=== PATIENT | male | born 1935 | race Caucasian/White ===

== ENCOUNTER 2020-06-06 14:05 | Outpatient (REF) | payer MEDICARE, SELFPAY ==
[2020-06-06 15:17] LABS: MANUAL DIFF FLAG NO
[2020-06-06 15:23] LABS: Basophils Percent Auto 0.3 % (0-2); Eosinophils Absolute Auto 0.2 X10*3/uL (0.0-0.4); Eosinophils Percent Auto 2.5 % (0-4); Hematocrit 35.6 % (42-52); Hemoglobin 11.6 g/dl (14.0-18.0); Imm Gran Abs Auto 0.03 X10*3/uL (0.00-0.03); Imm Gran Pct Auto 0.4 % (0.0-0.4); Lymphocytes Absolute Auto 1.9 X10*3/uL (1.2-4.9); Mean Corpuscular HGB Conc 32.6 g/dl (31.0-36.0); Mean Corpuscular Hemoglobin 28.9 pg (27.0-33.0); Mean Corpuscular Volume 88.8 fL (80-98); Mean Platelet Volume 11.5 fL (9.4-12.4); Monocytes Absolute Auto 0.6 X10*3/uL (0.1-1.2); Monocytes Percent Auto 8.1 % (2-11); Neutrophils Absolute Auto 4.9 X10*3/uL (2.0-8.3); Neutrophils Percent Auto 63.7 % (45-73); Platelet Count 161 X10*3/uL (160-400); Red Blood Count 4.01 X10*6/uL (4.60-5.80); Red Cell Distribution Width 12.3 % (11.0-16.0); White Blood Count 7.7 X10*3/uL (4.8-10.8)
[2020-06-06 15:40] LABS: B Type Natriuretic Peptide 96 pg/mL (<100)
[2020-06-06 15:41] LABS: Alanine Aminotransferase 12 U/L (0-40); Alkaline Phosphatase 79 U/L (39-117); Anion Gap 13 (12-20); Aspartate Amino Transferase 12 U/L (5-37); Bilirubin Total 0.4 mg/dL (0.0-1.0); Blood Urea Nitrogen 26 mg/dL (9-16); Calcium 9.5 mg/dL (8.4-10.2); Carbon Dioxide 26 mmol/L (22-29); Chloride 108 mmol/L (96-108); Estimated Glomerular Filt Rate 43; Glucose Random 197 mg/dL (60-115); Iron 52 mcg/dL (45-160); Percent Iron Saturation 19 % (15-50); Potassium 4.9 mmol/L (3.3-5.1); Sodium 142 mmol/L (135-145); Total Iron Binding Capacity 279 mcg/dL (228-428); Total Protein 7.2 g/dL (6.5-8.0); Unsaturated Iron Binding 227 ug/dL
[2020-06-06 15:45] LABS: Estimated Average Glucose 180 mg/dL; Hemoglobin A1c % 7.9 %
[2020-06-06 16:01] LABS: Vitamin B12 260 pg/mL (200-900)
== END 2020-06-06 14:06 | disposition home or self-care (01) ==
LOC: HO.LAB 14:05
PROVIDERS: PCP Internal Medicine; Visit Provider Internal Medicine
DX: E11.22 Type 2 diabetes mellitus with diabetic chronic kidney disease (principal); I12.9 Hypertensive chronic kidney disease with stage 1 through stage 4 chronic kidney disease, or unspecified chronic kidney disease; N18.9 Chronic kidney disease, unspecified; R60.9 Edema, unspecified; I48.91 Unspecified atrial fibrillation; I25.10 Atherosclerotic heart disease of native coronary artery without angina pectoris
CPT/HCPCS: 36415; 80053; 82607; 83036; 83540; 83880; 85025

== ENCOUNTER 2020-08-01 13:45 | Outpatient (REF) | payer MEDICARE, SELFPAY ==
[2020-08-01 14:32] LABS: Estimated Average Glucose 169 mg/dL; Hemoglobin A1c % 7.5 %
[2020-08-01 14:48] LABS: Anion Gap 12 (12-20); Blood Urea Nitrogen 37 mg/dL (9-16); Calcium 9.4 mg/dL (8.4-10.2); Carbon Dioxide 24 mmol/L (22-29); Chloride 107 mmol/L (96-108); Estimated Glomerular Filt Rate 35; Glucose Random 191 mg/dL (60-115); Potassium 4.4 mmol/L (3.3-5.1); Sodium 139 mmol/L (135-145)
[2020-08-02 08:42] LABS: Lyme Abs Screen <0.90 index
== END 2020-08-01 13:46 | disposition home or self-care (01) ==
LOC: HO.LAB 13:45
PROVIDERS: PCP Internal Medicine; Visit Provider Internal Medicine
DX: I12.9 Hypertensive chronic kidney disease with stage 1 through stage 4 chronic kidney disease, or unspecified chronic kidney disease (principal); N18.9 Chronic kidney disease, unspecified; E11.22 Type 2 diabetes mellitus with diabetic chronic kidney disease
CPT/HCPCS: 36415; 80048; 83036; 86617; 86618

== ENCOUNTER 2020-11-28 06:32 | Outpatient (REF) | payer MEDICARE, SELFPAY ==
[2020-11-28 07:15] LABS: Basophils Percent Auto 0.4 % (0-2); MANUAL DIFF FLAG SCAN; PLT CLUMP 1; SCAN SMEAR FLAG 1
[2020-11-28 07:18] LABS: Eosinophils Absolute Auto 0.2 X10*3/uL (0.0-0.4); Eosinophils Percent Auto 3.1 % (0-4); Hematocrit 36.6 % (42-52); Hemoglobin 12.1 g/dl (14.0-18.0); Imm Gran Abs Auto 0.02 X10*3/uL (0.00-0.03); Imm Gran Pct Auto 0.3 % (0.0-0.4); Lymphocytes Absolute Auto 1.7 X10*3/uL (1.2-4.9); Mean Corpuscular HGB Conc 33.1 g/dl (31.0-36.0); Mean Corpuscular Hemoglobin 29.6 pg (27.0-33.0); Mean Corpuscular Volume 89.5 fL (80-98); Mean Platelet Volume 10.9 fL (9.4-12.4); Monocytes Absolute Auto 0.6 X10*3/uL (0.1-1.2); Monocytes Percent Auto 9.6 % (2-11); Neutrophils Absolute Auto 4.1 X10*3/uL (2.0-8.3); Neutrophils Percent Auto 61.6 % (45-73); Red Blood Count 4.09 X10*6/uL (4.60-5.80); Red Cell Distribution Width 12.3 % (11.0-16.0); White Blood Count 6.7 X10*3/uL (4.8-10.8)
[2020-11-28 07:22] LABS: Platelet Count 129 X10*3/uL (160-400)
[2020-11-28 07:27] LABS: Estimated Average Glucose 140 mg/dL; Hemoglobin A1c % 6.5 %
[2020-11-28 07:40] LABS: Alanine Aminotransferase 12 U/L (0-40); Albumin Level 4.2 g/dL (3.5-5.0); Alkaline Phosphatase 77 U/L (39-117); Anion Gap 13 (12-20); Aspartate Amino Transferase 17 U/L (5-37); Bilirubin Total 0.5 mg/dL (0.0-1.0); Blood Urea Nitrogen 32 mg/dL (9-16); Calcium 9.4 mg/dL (8.4-10.2); Carbon Dioxide 25 mmol/L (22-29); Chloride 107 mmol/L (96-108); Cholesterol 145 mg/dL; Estimated Glomerular Filt Rate 39; Glucose Fasting 202 mg/dL (60-99); HDL Cholesterol 37 mg/dL; LDL Cholesterol Calculated 95 mg/dl; Potassium 5.5 mmol/L (3.3-5.1); Sodium 139 mmol/L (135-145); Total Protein 7.3 g/dL (6.5-8.0); Triglycerides 66 mg/dL
[2020-11-28 08:02] LABS: Prostate Specific Antigen Scr 2.08 ng/mL (<0.05-4.0)
[2020-11-28 09:16] LABS: Creatinine Urine 86.05 mg/dL
== END 2020-11-28 06:33 | disposition home or self-care (01) ==
LOC: HO.LAB 06:32
PROVIDERS: PCP Internal Medicine; Visit Provider Internal Medicine
DX: Z12.5 Encounter for screening for malignant neoplasm of prostate (principal); N40.0 Benign prostatic hyperplasia without lower urinary tract symptoms; I12.9 Hypertensive chronic kidney disease with stage 1 through stage 4 chronic kidney disease, or unspecified chronic kidney disease; N18.9 Chronic kidney disease, unspecified; E11.22 Type 2 diabetes mellitus with diabetic chronic kidney disease
CPT/HCPCS: 36415; 80053; 80061; 82043; 83036; 84153; 85025

== ENCOUNTER 2021-07-31 12:16 | Outpatient (REF) | payer MEDICARE, SELFPAY ==
--- NOTE | ~2021-07-31 | US_ITS ---
EXAMINATION: US VENOUS ULTRASOUND WITH DOPPLER LOWER EXTREMITY, RIGHT CLINICAL INFORMATION: Right leg pain. COMPARISON: Radiographs of leg from 07/04/2019 TECHNIQUE: Ultrasound of the deep veins is performed from the hip to the calf with compression sonography and color and pulse Doppler assessment. Spectral analysis with color-flow imaging is performed. FINDINGS: The common femoral vein is compressible and exhibits a normal phasic waveform; this suggests that the iliac veins are widely patent above. Within the proximal thigh, the visualized profunda femoris vein is normal. The examined greater saphenous vein and saphenofemoral junction are normal. Superficial femoral vein is patent in the proximal, mid and distal thigh. Popliteal vein is normal to the level of the trifurcation. On compression kurtz scale and color Doppler images, the visualized calf veins are grossly patent. No evidence of Tucker's cyst. US/US venous duplex LE RT IMPRESSION: No evidence of deep vein thrombosis in the right lower extremity.
== END 2021-07-31 12:17 | disposition home or self-care (01) ==
LOC: HO.US 12:16
PROVIDERS: PCP Internal Medicine; Visit Provider Internal Medicine
DX: M79.604 Pain in right leg (principal)
CPT/HCPCS: 93971

== ENCOUNTER 2021-08-08 13:36 | Outpatient (REF) | payer MEDICARE, SELFPAY ==
--- NOTE | ~2021-08-08 | XR_ITS ---
EXAMINATION: XR CHEST CLINICAL INFORMATION: Cough and wheezing COMPARISON: Chest 03/22/2019 TECHNIQUE: 2 views of the chest were obtained. FINDINGS: The lungs are well-expanded and clear of acute process. Heart size is borderline normal. Pulmonary vascularity is normal. There is moderate spondylosis throughout dorsal spine XR/XR chest 2V IMPRESSION: Unremarkable chest exam. Moderate spondylosis dorsal spine
== END 2021-08-08 13:37 | disposition home or self-care (01) ==
LOC: HO.XRAY 13:36
PROVIDERS: PCP Internal Medicine; Visit Provider Internal Medicine
DX: R05.9 Cough, unspecified (principal); R06.2 Wheezing
CPT/HCPCS: 71046

== ENCOUNTER 2023-02-07 06:05 | Outpatient (REF) | payer MEDICARE, SELFPAY ==
[2023-02-07 12:11] LABS: Estimated Average Glucose 143 mg/dL; Hemoglobin A1c % 6.6 % (<6.0)
[2023-02-07 12:15] LABS: Alanine Aminotransferase 6 U/L (0-40); Albumin Level 3.8 g/dL (3.5-5.0); Alkaline Phosphatase 64 U/L (39-117); Anion Gap 11 (12-20); Aspartate Amino Transferase 13 U/L (5-37); Bilirubin Total 0.4 mg/dL (0.0-1.0); Blood Urea Nitrogen 36 mg/dL (9-16); Calcium 9.1 mg/dL (8.4-10.2); Carbon Dioxide 24 mmol/L (22-29); Chloride 110 mmol/L (96-108); Cholesterol 137 mg/dL (<200); Estimated Glomerular Filt Rate 34; Glucose Fasting 120 mg/dL (60-99); HDL Cholesterol 36 mg/dL (>40); LDL Cholesterol Calculated 88 mg/dL (<100); Potassium 4.8 mmol/L (3.3-5.1); Sodium 140 mmol/L (135-145); Total Protein 7.3 g/dL (6.5-8.0); Triglycerides 69 mg/dL (<150)
[2023-02-07 12:45] LABS: Creatinine Urine 104.44 mg/dL; Microalbum/Creatinine Ratio Ur 81.3 ug/mg cr (<30)
== END 2023-02-07 06:06 | disposition home or self-care (01) ==
LOC: HO.HMGCLDS 06:05
PROVIDERS: PCP Internal Medicine; Visit Provider Internal Medicine
DX: E11.22 Type 2 diabetes mellitus with diabetic chronic kidney disease (principal); I12.9 Hypertensive chronic kidney disease with stage 1 through stage 4 chronic kidney disease, or unspecified chronic kidney disease; N18.9 Chronic kidney disease, unspecified; N40.0 Benign prostatic hyperplasia without lower urinary tract symptoms
CPT/HCPCS: 36415; 80053; 80061; 82043; 82570; 83036

== ENCOUNTER 2023-07-25 15:18 | Outpatient (REF) | payer MEDICARE, SELFPAY ==
[2023-07-25 15:29] LABS: MANUAL DIFF FLAG NO
[2023-07-25 15:49] LABS: Basophils Percent Auto 0.4 % (0-2); Eosinophils Absolute Auto 0.2 X10*3/uL (0.0-0.4); Eosinophils Percent Auto 2.4 % (0-4); Hematocrit 35.7 % (42.0-52.0); Hemoglobin 11.6 g/dl (14.0-18.0); Imm Gran Abs Auto 0.02 X10*3/uL (0.00-0.03); Imm Gran Pct Auto 0.3 % (0.0-0.4); Lymphocytes Absolute Auto 1.9 X10*3/uL (1.2-4.9); Lymphocytes Percent Auto 28.2 % (20-40); Mean Corpuscular HGB Conc 32.5 g/dl (31.0-36.0); Mean Corpuscular Hemoglobin 29.1 pg (27.0-33.0); Mean Corpuscular Volume 89.7 fL (80.0-98.0); Mean Platelet Volume 10.8 fL (9.4-12.4); Monocytes Absolute Auto 0.6 X10*3/uL (0.1-1.2); Monocytes Percent Auto 8.5 % (2-11); Neutrophils Absolute Auto 4.1 x10*3/uL (2.0-8.3); Neutrophils Percent Auto 60.2 % (45-73); Platelet Count 143 X10*3/uL (160-400); Red Blood Count 3.98 X10*6/uL (4.60-5.80); Red Cell Distribution Width 12.3 % (11.0-16.0); White Blood Count 6.7 X10*3/uL (4.8-10.8)
[2023-07-25 16:07] LABS: Estimated Average Glucose 140 mg/dL; Hemoglobin A1c % 6.5 % (<6.0)
[2023-07-25 16:10] LABS: Anion Gap 10 (12-20); Blood Urea Nitrogen 37 mg/dL (9-16); Calcium 9.8 mg/dL (8.4-10.2); Carbon Dioxide 29 mmol/L (22-29); Chloride 106 mmol/L (96-108); Estimated Glomerular Filt Rate 33; Glucose Random 192 mg/dL (60-115); Potassium 4.5 mmol/L (3.3-5.1); Sodium 140 mmol/L (135-145)
== END 2023-07-25 15:19 | disposition home or self-care (01) ==
LOC: HO.LAB 15:18
PROVIDERS: PCP Internal Medicine; Visit Provider Internal Medicine
DX: I10 Essential (primary) hypertension (principal); D64.9 Anemia, unspecified; E11.9 Type 2 diabetes mellitus without complications
CPT/HCPCS: 36415; 80048; 83036; 85025

== ENCOUNTER 2023-12-19 06:11 | Outpatient (REF) | payer MEDICARE, SELFPAY ==
[2023-12-19 07:39] LABS: Basophils Percent Auto 0.3 % (0-2); Eosinophils Absolute Auto 0.1 X10*3/uL (0.0-0.4); Eosinophils Percent Auto 2.1 % (0-4); Hematocrit 35.6 % (42.0-52.0); Hemoglobin 11.5 g/dl (14.0-18.0); Imm Gran Abs Auto 0.03 X10*3/uL (0.00-0.03); Imm Gran Pct Auto 0.5 % (0.0-0.4); Lymphocytes Absolute Auto 1.4 X10*3/uL (1.2-4.9); Lymphocytes Percent Auto 22.8 % (20-40); MANUAL DIFF FLAG NO; Mean Corpuscular HGB Conc 32.3 g/dl (31.0-36.0); Mean Corpuscular Hemoglobin 28.9 pg (27.0-33.0); Mean Corpuscular Volume 89.4 fL (80.0-98.0); Mean Platelet Volume 11.5 fL (9.4-12.4); Monocytes Absolute Auto 0.6 X10*3/uL (0.1-1.2); Monocytes Percent Auto 9.3 % (2-11); Neutrophils Absolute Auto 4.1 x10*3/uL (2.0-8.3); Platelet Count 146 X10*3/uL (160-400); Red Blood Count 3.98 X10*6/uL (4.60-5.80); White Blood Count 6.3 X10*3/uL (4.8-10.8)
[2023-12-19 07:50] LABS: Estimated Average Glucose 126 mg/dL; Hemoglobin A1C 131.2802 umol/L; Total Hemoglobin (HGBA1C) 3118.3404 umol/L
[2023-12-19 08:05] LABS: Creatinine Urine 79.15 mg/dL; Microalbum/Creatinine Ratio Ur 121.2 ug/mg cr (<30)
[2023-12-19 08:14] LABS: Alanine Aminotransferase 11 U/L (0-40); Alkaline Phosphatase 63 U/L (39-117); Anion Gap 13 (12-20); Aspartate Amino Transferase 23 U/L (5-37); Bilirubin Total 0.4 mg/dL (0.0-1.0); Blood Urea Nitrogen 32 mg/dL (9-16); Calcium 9.5 mg/dL (8.4-10.2); Carbon Dioxide 24 mmol/L (22-29); Chloride 108 mmol/L (96-108); Cholesterol 136 mg/dL (<200); Estimated Glomerular Filt Rate 34; Glucose Fasting 100 mg/dL (60-99); HDL Cholesterol 36 mg/dL (>40); LDL Cholesterol Calculated 89 mg/dL (<100); Potassium 4.6 mmol/L (3.3-5.1); Sodium 140 mmol/L (135-145); Total Protein 7.4 g/dL (6.5-8.0); Triglycerides 58 mg/dL (<150)
[2023-12-19 08:33] LABS: Prostate Specific Antigen 2.11 ng/mL (<0.05-4.0)
== END 2023-12-19 06:12 | disposition home or self-care (01) ==
LOC: HO.LAB 06:11
PROVIDERS: PCP Internal Medicine; Visit Provider Internal Medicine
DX: I10 Essential (primary) hypertension (principal); E11.9 Type 2 diabetes mellitus without complications; N40.0 Benign prostatic hyperplasia without lower urinary tract symptoms; Z12.5 Encounter for screening for malignant neoplasm of prostate
CPT/HCPCS: 36415; 80053; 80061; 82043; 82570; 83036; 84153; 85025

== ENCOUNTER 2024-01-13 14:45 | Outpatient (REF) | payer MEDICARE, SELFPAY ==
--- OUTSIDE RECORDS SUMMARY | 2024-01-20 15:01 | XMS_ITS ---
Author Organization [facility] [place] Address [address] [place] [address] Care Team Providers Care Resource Specialist Teacher Name Role Phone Pete Fischer MD Primary Care Provider Antolin Hoffman Unavailable [phone] Allergies No Known Allergies REASON FOR VISIT At Risk Footcare Medications Medication SIG (Take, Route, Frequency, Duration) Notes Start Date End Date Status TOLAZamide Active Lisinopril Active glipiZIDE 5 MG 1 tablet Orally Once a day Active Tamsulosin HCl Activ e Metformin & Diet Manage Prod Active januvia Active Eye Drops Active Doxazosin Mesylate A ctive Social History Tobacco Use: Social History Observation Description Date Details (start date - stop date) Never Smoker NA - NA Tobacco Use/Smoking Question Answer Notes Are you a: nonsmoker Tobacco use other than smoking: Question Answer Notes Are you an other tobacco user? No Problems Problem Type SNOMED Code ICD Code Onset Dates Problem Status W/U Status Risk Notes Problem Polyneuropathy due to type 2 diabetes mellitus (555519283) Type 2 diabetes mellitus with diabetic polyneuropathy (E11.42) Active confirmed Vital Signs Height 5 ft 10.5 in in 12/02/2023 Weight 230 lbs 12/02/2023 BMI 32.53 kg/m2 12/02/2023 Blood pressure systolic 125 mm Hg 12/02/19 24 Blood pressure diastolic 65 mm Hg 024 Procedures Procedure Date Ordered Date Performed Result Body Sit e 45019-BPPSVCM NAIL, 6 OR MORE 12/02/2023 N/A 04629-QLYE SKIN LESIONS, 2 TO 4 12/02/2023 N/A Encounters Encounter Location Date Provider Diagnosis [facility] [address] [address] 12/02/2023 Antoiln Dolanunier Type 2 diabetes mellitus with diabetic polyneuropathy E11.42 and Tinea unguium B35.1 Assessments Encounter Date Diagnosis (ICD Code) Assessment Notes Treatment Notes Treatment Clinical Notes Section Notes 12/02/2023 Type 2 diabetes mellitus with diabetic polyneuropathy (ICD-10 - E11.42) 12/02/2023 Tinea unguium (ICD-10 - B35.1) Plan Of Treatment Pending Test Test Name Order Date 73658-EDYDPPW NAIL, 6 OR MORE 12/02/2023 99198-MTEM SKIN LESIONS, 2 TO 4 12/02/19 24 Next Appt Details Follow Up: prn, Reason: Provider Name:Antolin Hernandez , 03/02/2024 09:00:00 AM, [address] [place] [address], [id number], Procedure Notes * Category Sub-Category Detail Notes Debride Nail 6-10 Nail debridement Performance o f this nail treatment by a nonprofessional would put this patients foot and overall health at risk. Therefore, nail debridement was performed extensively to reduce/remove overall nail length, girth, thickness, subungual debris, and necrotic tissue, by manual and/or electrical means through the use of a nail nipper and/or dremel-type cinnamon grinder, to a more viable healthy nail plate or bed tissue 6-10. Silver nitrate used for any petechial bleeding as necessary. Definitive antifungal treatment options have been reviewed and discussed with the patient. The patient chooses, no pharmaceutical tx - [address]17 Keratoma Treatment Parring or Cutting o f Benign Hyperkeratotic Lesion(s) (-56) 2-4 Lesions - The Benign hyperkeratotic lesions, as described above were pared, and/or cut utilizing a sterile 15 blade, tissue nippers, and/or dremel - 68789 Progress Notes * Alex ARIASDOB: (88 yo M)Acc No.[id number]:12/02/2023 Progress Note Patient:?Alex Arias Provider:?Antolin Hernandez DPM :1935???Age:88 Y???Sex:Male Horace e:12/02/2023 Address:[address] [id number] Pcp:Pete Fischer MD Subjective: * Chief Complaints: * ???At Risk Footcare * HPI: ???At Risk footcare:?Pt States Last PCP Visit:?Date?07/14/2023 * ROS:?General/Constitutional:?Nausea?denies.?Vomiting?denies.?Hunger Thirst?denies.?Loss appetite?denies.?Chills?denies.?Fatigue?denies.?Fever?denies.?Night Sweats?denies.?Unexplained weight loss?denies.?Unexplained weight gain?denies.?HEENTM:?Dentures?denies.?Dizziness?denies.?Glasses/contacts?admits.?Retinopathy?de nies.?Blurred/double vision?denies.?TMJ?denies.?Discharge/drainage?denies.?Implants?denies.?Sore throat?denies.?Dental implants?denies.?Hard of hearing ?denies.?Difficulty chewing/swallowing/speaking?denies.?Nose bleeds?denies.?Sore mouth?denies.?Respiratory:?On Oxygen?denies.?Pneumonia/pleurisy?denies.?Bronchitis?denies.?Emphysema?denies.?C oughing?denies.?Cough blood?denies.?Shortness of breath?denies.?Wheezing?denies.?Cardiovascular:?Pacemaker?denies.?MVP?denies.?WPW?denies.?CHF?denies.?Heart attack?denies.?Septal defect?denies.?Rapid beat?denies.?Chest pain ?denies.?Atrial Fib.?denies.?Murmur/Palpitations?denies.?Gastrointestinal:?Hemorrhoids?denies.?Stomach/Abdominal pain?denies.?Dark blood stool?denies.?Irritable bowel ?denies.?Constipation?denies.?Diarrhea?denies.?Hematology:?Swelling?denies.?Clots?denies.?Varicose Veins?denies.?Bruising?denies.?Bleeding problem?denies.?Genitourinary:?Blood urine?denies.?Frequent/Painfu/urination/bladder control?denies.?Kidney stones?denies.?Infection (UTI)?denies.?Nephropathy?denies.?sex trans dis (STD)?denies.?Prostate?denies.?Musculoskeletal:?Hammertoes?admits.?Bunions?denies.?Back Pain?denies.?Muscle Cramps/ Resting?denies.?Muscle cramps / walking?denies.?Generalized aches and pains?denies.?Weakness?denies.?Integ.:?[place]man?denies.?Scars?denies.?Corns/calluses?admits.?Ingrown nails?admits.?Painful nails?denies.?Open Sores?denies.?Rashes?denies.?Neurologic:?Difficulty sleeping?denies.?Brain disorder?denies.?Numbness?denies.?Balance trouble?denies.?Confusion?denies.?Fainting/blackouts?denies.?Tingling?denies.?Tr emors?denies.? * Medical History:? * Surgical History:?prostate s urgery 06/24/2014 * Hospitalization/Major Diagno stic Procedure:?[facility]- pneumonia xrays of lungs same day 07/2021 * Family History:?Mother: dece ased, diagnosed with Other malignant neoplasm of unspecified site.?Father: , diagnosed with Other specified conditions influencing health status.?Daughter(s): alive, diagnosed with Other specified conditions influencing health status.?Son(s): alive, diagnosed with Other specified conditions influencing health status.? * Social History:?Tobacco Use:?Tobacco Use/Smoking?Are you a:?nonsmoker ?Tobacco use other than smoking?Are you an other tobacco user??No ???Miscellaneous:?Caffeine: yes, frequency:,Coffee Tea 1 cups per day. ?Children: yes, 4. ?Exercise: yes, housework active. ?Marital status: . 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 * Medications:?Takingjanuvia D oxazosin Mesylate Eye Drops glipiZIDE 5 MG Tablet 1 tablet Orally Once a dayLisinopril Metformin & Diet Manage Prod Tamsulosin HCl TOLAZamide Medication List reviewed and reconciled with the patientTaking januvia Taking Doxazosin Mesylate Taking Eye Drops Taking glipiZIDE 5 MG Tablet 1 tablet Orally Once a dayTaking Lisinopril Taking Metformin & Diet Manage Prod Taking Tamsulosin HCl Taking TOLAZamide Medication List reviewed and reconciled with the patient * Allergies:?N.K.D.A.yes[Aller gies Verified] Objective: * Vitals:?Ht: 5 ft 10.5 in, Wt : 230, BMI: 32.53, Shoe size: 10.5, BP: 125/65 mm Hg, BS: 81, Wt-k.33 kg. * ???Past Orders: ???Lab:HEMOGLOBIN A1C (GLYCO HEMOGLOBIN) (Order Date - 08/27/2023) (Collection Date - 07/14/2023) ? Value Reference Range ?HEMOGLOBIN A1C % (HH) 6.5 * Examination: ???Ophthalmology Referral: ?DIABETES EYE EXAM?Neurological: ?SENSORY:? Neurological exam demonstrates, reduced light touch sensation, reduced sharp/dull pin prick discrimination , B/L, 5.07 monofilament test performed at plantar aspects of 5 varied sites per foot shows sensation, reduced , B/L.?Nails: ?NAILS are:?Elongated, overgrown, dystrophic, lytic, greater than 3mm thick, discolored and friable with crumbly malodorous subungual debris , 1-5 B/L.?Dermatologic: ?SKIN FINDINGS:?Skin exam reveals Keratotic lesion(s) located at , SUB MTH (s) , 1 , B/L , Heel(s) , B/L.? Assessment: * Assessment: 1.?Type 2 diabetes mellitus with diabetic polyneuropathy - E11.42 (Primary)?2.?Tinea unguium - B35.1? Plan: * Treatment: * Procedures:?Debride Nail 6-10:?Nail debridement?Performance of this nail treatment by a nonprofessional would put this patients foot and overall health at risk. Therefore, nail debridement was performed extensively to reduce/remove overall nail length, girth, thickness, subungual debris, and necrotic tissue, by manual and/or electrical means through the use of a nail nipper and/or dremel-type cinnamon grinder, to a more viable healthy nail plate or bed tissue 6-10. Silver nitrate used for any petechial bleeding as necessary. Definitive antifungal treatment options have been reviewed and discussed with the patient. The patient chooses, no pharmaceutical tx - 31178.?Keratoma Treatment:?Parring or Cutting of Benign Hyperkeratotic Lesion(s)?(-56) 2-4 Lesions - The Benign hyperkeratotic lesions, as described above were pared, and/or cut utilizing a sterile 15 blade, tissue nippers, and/or dremel - 66978.? * Procedure Codes:?03150 DEBRI DE NAIL, 6 OR MORE, Modifiers: XS 29098 TRIM SKIN LESIONS, 2 TO 4, Modifiers: XS * Follow Up:?prn * Images: * Sign off status: Completed true * Provider:?Antolin Hernandez DPM Date:?2023 Generated for Denice carreno/Jann/eTransmitting on:?01/20/2024 03:01 PM EST History and Physical Notes * HPI (History of Present Illness) Category Sub-Category Detail Notes Category Not es At Risk footcare Pt States Last PCP Visit: Date: 4 Examination Category Sub-Category Detail Notes Category Not es Neurological SENSORY: Neurological exa m demonstrates, reduced light touch sensation, reduced sharp/dull pin prick discrimination , B/L, 5.07 monofilament test performed at plantar aspects of 5 varied sites per foot shows sensation, reduced , B/L Dermatologic SKIN FINDINGS: Skin exam reveal s Keratotic lesion(s) located at , SUB MTH (s) , 1 , B/L , Heel(s) , B/L Ophthalmology Referral DIABETES EYE EXAM Diabeti c Retinopathy Screening:: Yes Findings of Diabetic Eye Exam:: no retin opathy Nails NAILS are: Elongated, overg rown, dystrophic, lytic, greater than 3mm thick, discolored and friable with crumbly malodorous subungual debris , 1-5 B/L
--- OUTSIDE RECORDS SUMMARY | 2024-01-20 15:02 | XMS_ITS ---
[facility] Organization [facility] Address [address] [facility] [place] [address] Care Team Providers Care Watch Train Inspector Name Role Phone Pete Fischer MD Primary Care Provider Antolin Hoffman Unavailable [phone] Jose South Unavailable [phone] Allergies No Known Allergies REASON FOR VISIT Painful nail(s) aggrevated by shoes and causing difficulty standing/walking. Medications Medication SIG (Take, Route, Frequency, Duration) Notes Start Date End Date Status Doxazosin Mesylate A ctive Eye Drops Active glipiZIDE 5 MG 1 tablet Orally Once a day Active januvia Active Extra Depth Diabetic Shoes with 3 Pair Custom heat-molded multi-density innersoles for 1 year Dx: A ctive Diabetic Insoles Act zayra Extra Depth Diabetic Shoes with 3 Pair Custom heat-molded multi-density innersoles for 1 year Dx: 02/24/2020 N ot-Taking Extra Depth Diabetic Shoes with 3 Pair Custom heat-molded multi-density innersoles for 1 year Dx: 08/24/2020 N ot-Taking Extra Depth Orthopedic Shoes (1 Pair) with Customized Heat Molded Multidensity Innersoles (3 Pair) as directed Dx: NIDDM/Polyneuropathy (E11.42), Hammertoe Foot Deformity (M20.41,M20.42), Preulcerative Skin Lesion(s) (L85.1 04/27/2018 Not-Taking Extra Depth Diabetic Shoes with 3 Pair Custom heat-molded multi-density innersoles for 1 year Dx: 06/26/2017 N ot-Taking Metformin & Diet Manage Prod Active Tamsulosin HCl Activ e TOLAZamide Active Lisinopril Active Social History Tobacco Use: Social History Observation Description Date Details (start date - stop date) Never Smoker NA - NA Tobacco Use/Smoking Question Answer Notes Are you a: nonsmoker Alcohol Screen Question Answer Notes Did you have a drink containing alcohol in the p ast year? Yes Points 0 Interpretation Negative Tobacco use other than smoking: Question Answer Notes Are you an other tobacco user? No Vital Signs Height 5 ft 10.5 in in 05/14/2023 Weight 237 lbs 05/14/2023 BMI 33.52 kg/m2 05/14/2023 Blood pressure systolic 120 mm Hg 05/14/19 24 Blood pressure diastolic 80 mm Hg 024 Encounters Encounter Location Date Provider Diagnosis [facility] [address] [address] 05/14/2023 Jose South Tinea unguium B35.1 ; Type 2 diabetes mellitus with diabetic polyneuropathy E11.42 ; Pain in left foot M79.672 ; Pain in right toe(s) M79.674 ; Pain in left toe(s) M79.675 and Xerosis cutis L85.3 Assessments Encounter Date Diagnosis (ICD Code) Assessment Notes Treatment Notes Treatment Clinical Notes Section Notes 05/14/2023 Tinea unguium (ICD-10 - B35.1) 05/14/2023 Type 2 diabetes mellitus with diabetic polyneuropathy (ICD-10 - E11.42) 05/14/2023 Pain in left foot (ICD-10 - M79.672) 05/14/2023 Pain in right toe(s) (ICD-10 - M79.674) 05/14/2023 Pain in left toe(s) (ICD-10 - M79.675) 05/14/2023 Xerosis cutis (ICD-10 - L85.3) Plan Of Treatment Medication Medication Name Sig Start Date Stop Date Notes Extra Depth Diabetic Shoes w ith 3 Pair Custom heat-molded multi-density innersoles for 1 year Dx: Next Appt Details Follow Up: 3 Months, Reason: Provider Name:Antolin Hernandez , 03/02/2024 09:00:00 AM, [address] [place] [address], [phone], Procedure Notes * Category Sub-Category Detail Notes Debride Nail 6-10 Nail debridement Nail debridem ent performed extensively to reduce/remove overall nail length and girth, subungual debris, and necrotic tissue, by manual and electrical means with use of a nail nipper and/or dremel, to more viable healthy nail plate or bed tissue 6-10. Silver nitrate used for any petechial bleeding as necessary. Patient chooses, no pharmaceutical tx (89895) Keratoma Treatment Parring or Cutting o f Benign Hyperkeratotic Lesion(s) 69274 (2-4 Lesions) - The Benign hyperkeratotic lesions, as described above were pared, and/or cut utilizing a sterile #15 blade, tissue nippers, and/or dremel Progress Notes * Alex ARIASDOB: [birth year] (88 yo M)Acc No.[id number]:05/14/2023 Progress Note Patient:?Alex Arias Provider:?Jose South DPM :1935???Age:88 Y???Sex:Male Horace e:05/14/2023 Address:[address] [place], [place] [id number] Pcp:Pete Fischer MD Subjective: * Chief Complaints: * ??? Painful nail(s) aggrevat ed by shoes and causing difficulty standing/walking. * HPI: ???Painful Nails:?Pt States Last PCP Visit:?Date:?01/22/2023 * ROS:?General/Constitutional:?Nausea?denies.?Vomiting?denies.?Hunger Thirst?denies.?Loss appetite?denies.?Chills?denies.?Fatigue?denies.?Fever?denies.?Night Sweats?denies.?Unexplained weight loss?denies.?Unexplained weight gain?denies.?HEENTM:?Dentures?denies.?Dizziness?denies.?Glasses/contacts?admits.?Retinopathy?de nies.?Blurred/double vision?denies.?TMJ?denies.?Discharge/drainage?denies.?Implants?denies.?Sore throat?denies.?Dental implants?denies.?Hard of hearing ?denies.?Difficulty chewing/swallowing/speaking?denies.?Nose bleeds?denies.?Sore mouth?denies.?Respiratory:?On Oxygen?denies.?Pneumonia/pleurisy?denies.?Bronchitis?denies.?Emphysema?denies.?C oughing?denies.?Cough blood?denies.?Shortness of breath?denies.?Wheezing?denies.?Cardiovascular:?Pacemaker?denies.?MVP?denies.?WPW?denies.?CHF?denies.?Heart attack?denies.?Septal defect?denies.?Rapid beat?denies.?Chest pain ?denies.?Atrial Fib.?denies.?Murmur/Palpitations?denies.?Gastrointestinal:?Hemorrhoids?denies.?Stomach/Abdominal pain?denies.?Dark blood stool?denies.?Irritable bowel ?denies.?Constipation?denies.?Diarrhea?denies.?Hematology:?Swelling?denies.?Clots?denies.?Varicose Veins?denies.?Bruising?denies.?Bleeding problem?denies.?Genitourinary:?Blood urine?denies.?Frequent/Painfu/urination/bladder control?denies.?Kidney stones?denies.?Infection (UTI)?denies.?Nephropathy?denies.?sex trans dis (STD)?denies.?Prostate?denies.?Musculoskeletal:?Hammertoes?denies.?Bunions?denies.?Back Pain?denies.?Muscle Cramps/ Resting?denies.?Muscle cramps / walking?denies.?Generalized aches and pains?denies.?Weakness?denies.?Integ.:?Inman?denies.?Scars?denies.?Corns/calluses?denies.?Ingrown nails?denies.?Painful nails?denies.?Open Sores?denies.?Rashes?denies.?Neurologic:?Difficulty sleeping?denies.?Brain disorder?denies.?Numbness?denies.?Balance trouble?denies.?Confusion?denies.?Fainting/blackouts?denies.?Tingling?denies.?Tr emors?denies.? * Medical History:? * Surgical History:?prostate s urgery 06/24/2014 * Hospitalization/Major Diagno stic Procedure:?C- pneumonia xrays of lungs same day 07/2021 [...] than smoking?Are you an other tobacco user??No ???Drugs/Alcohol:?Drugs?Have you used drugs other than those for medical reasons in the past 12 months??No ?Alcohol Screen?Did you have a drink containing alcohol in the past year??Yes ?Points?0 ?Interpretation?Negative ???Miscellaneous:?Caffeine: yes, frequency:,Coffee Tea 1 cups per day. ?Children: yes, 4. ?Exercise: yes, housework active. ?Marital status: . 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 * Medications:?Takingjanuvia E xtra Depth Diabetic Shoes with 3 Pair Custom heat- molded multi-density innersoles for 1 year Dx:Doxazosin Mesylate Eye Drops glipiZIDE 5 MG Tablet 1 tablet Orally Once a dayLisinopril Metformin & Diet Manage Prod Tamsulosin HCl TOLAZamide Diabetic Insoles Taking januvia Taking Extra Depth Diabetic Shoes with 3 Pair Custom heat-molded multi-density innersoles for 1 year Dx:Taking Doxazosin Mesylate Taking Eye Drops Taking glipiZIDE 5 MG Tablet 1 tablet Orally Once a dayTaking Lisinopril Taking Metformin & Diet Manage Prod Taking Tamsulosin HCl Taking TOLAZamide Taking Diabetic Insoles Not-Taking/PRNExtra Depth Diabetic Shoes with 3 Pair Custom heat-molded multi-density innersoles for 1 year Dx:Extra Depth Orthopedic Shoes (1 Pair) with Customized Heat Molded Multidensity Innersoles (3 Pair) as directed Dx: NIDDM/Polyneuropathy (E11.42), Hammertoe Foot Deformity (M20.41,M20.42), Preulcerative Skin Lesion(s) (L85.1Extra Depth Diabetic Shoes with 3 Pair Custom heat-molded multi-density innersoles for 1 year Dx:Extra Depth Diabetic Shoes with 3 Pair Custom heat-molded multi-density innersoles for 1 year Dx:Medication List reviewed and reconciled with the patientNot-Taking/PRN Extra Depth Diabetic Shoes with 3 Pair Custom heat-molded multi-density innersoles for 1 year Dx:Not- Taking/PRN Extra Depth Orthopedic Shoes (1 Pair) with Customized Heat Molded Multidensity Innersoles (3 Pair) as directed Dx: NIDDM/Polyneuropathy (E11.42), Hammertoe Foot Deformity (M20.41,M20.42), Preulcerative Skin Lesion(s) (L85.1Not-Taking/PRN Extra Depth Diabetic Shoes with 3 Pair Custom heat-molded multi-density innersoles for 1 year Dx:Not-Taking/PRN Extra Depth Diabetic Shoes with 3 Pair Custom heat-molded multi-density innersoles for 1 year Dx:Medication List reviewed and reconciled with the patient * Allergies:?N.K.D.A.yes[Kodi paez Verified] Objective: * Vitals:?Ht: 5 ft 10.5 in, Wt :237, BMI:33.52, Shoe size:10.5, BP:120/80 mm Hg, BS:76. * ???Past Orders: ???Lab:HEMOGLOBIN A1C (GLYCO HEMOGLOBIN) (Order Date - 07/30/2021) ? Value Reference Range ?HEMOGLOBIN A1C % (HH) 6.8 * Examination: ???Neurological: ?SENSORY:?Neurological exam demonstrates, reduced light touch sensation, reduced vibration sensation, B/L, at Forefoot, at Midfoot, 5.07 monofilament test performed at plantar aspects of 5 varied sites per foot shows sensation, reduced , B/L.?Vascular: ?DP PULSES:?02/13, B/L .?PT PULSES:?02/13, B/L .?EDEMA:? 02/13, B/L, Ankle(s), Leg(s).?Nails: ?NAILS are:?elongated,overgrown,dystrophic,greater than 3mm thick,discolored and friable with crumbly malodorous subungual debris, with dull to no pain on palpation due to neuropathy, 1-5 B/L.?Dermatologic: ?SKIN FINDINGS:? Skin exam reveals Keratotic lesion(s) located at, Heel, B/L.?Orthopedic: ?MUSCLE STRENGTH:?5/5 all groups in a symmetrical fashion , B/L.?DIGITAL DEFORMITIES:? Digital contracture, PIPJ, 2-5 B/L, incompl- reducable to push-up test, no over, nor underlapping.?FOOTWEAR:? worn, nonsupportive.?Ophthalmology Referral: ?DIABETES EYE EXAM?General Examination: ?GENERAL APPEARANCE:?Reveals a pleasant, alert, well nourished, well developed, well hydrated individual, who demonstrates proper attention to hygene/body habitus, and is in no acute distress.?ORIENTED:?person, place, and time.?FOOT EXAM:?Footwear Evaluation? Assessment: * Assessment: 1.?Tinea unguium - B35.1?2.? Type 2 diabetes mellitus with diabetic polyneuropathy - E11.42 (Primary)?3.?Pain in left foot - M79.672?4.?Pain in right toe(s) - M79.674?5.?Pain in left toe(s) - M79.675?6.?Xerosis cutis - L85.3? Plan: * Treatment: * Procedures:?Debride Nail 6-10:?Nail debridement?Nail debridement performed extensively to reduce/remove overall nail length and girth, subungual debris, and necrotic tissue, by manual and electrical means with use of a nail nipper and/or dremel, to more viable healthy nail plate or bed tissue 6-10. Silver nitrate used for any petechial bleeding as necessary. Patient chooses, no pharmaceutical tx (47300).?Keratoma Treatment:?Parring or Cutting of Benign Hyperkeratotic Lesion(s)?46183 (2-4 Lesions) - The Benign hyperkeratotic lesions, as described above were pared, and/or cut utilizing a sterile #15 blade, tissue nippers, and/or dremel.? * Procedure Codes:?84874 TRIM SKIN LESIONS, 2 TO 4, Modifiers: XS * Preventive Medicine:? ??Counseling:?Discussion:?-13: Office or other outpatient visit for the evaluation and management of an established patient, which required a medically appropriate history and/or examination and LOW level of DECISION MAKING for: 1 STABLE ACUTE UNCOMPLICATED PROBLEM, 2 OR MORE MINOR PROBLEMS, OR 1 STABLE CHRONIC PROBLEM, THAT POSE(S) A LOW RISK FOR MORBIDITY/MORTALITY. When using time for code selection, 20-29 min of total time was spent on the day of the encounter interpreting the data and educating the patient as to the nature of their condition, treatment options available according to their individual PMH, meds, allergies, and overall health/living conditions, as well as any potential risks or complications that may occur from a failure to adhere to, and participate in, the recommended course of therapy. The discussion included a complete verbal, and/or written explanation of the examination results, any x- rays taken, the proposed diagnosis, and outline of the treatment plan. A schedule for future care needs was also explained. The patient verbalized an understanding of the instructions at this time and agreed to be an active participant in their treatment. If the patient should think of any questions or concerns after the visit, I have encouraged the patient to call the office--pt needs to comply with new rx dm shoes and given info for pnos and live for shoes.?Diabetic Footcare:?The patient was counseled in great detail on their muscoloskeletal foot and toe deformities which coincided with the dermatological presentations visualized on exam. We discussed how their deformities put the integrity of their feet at risk for potential pedal complications which makes the accomidative diabetic shoes and cutomizable inserts medically necessary. We discussed the different shoe and insert treatment types and options, as well as the important advantages for adhering to regularly wearing these accomidative devices daily. The patient was made aware of the fact that a failure to abide by these recommedations may be deleterious to their foot health as they are able to prevent many pedal complications such as skin irritation, skin ulceration, infection, and even loss of toe/foot/leg/or life. Time was also spent with the patient dispensing and discussing proper diabetic footcare techniques including daily skin moisturization, daily foot inspection for any interruption in skin integrity including open lesions, or sign of infection such as redness/malodor/drainage/swelling. Also discussed and recommended were procedures regarding daily shoe inspection for the presence of internal foreign bodies as well as any visualized irregular shoe or insert wear. Patient questions re: shoes, inserts, and self foot inspections were answered to their satisfaction as the patient verbally confirmed a full understanding of the above information. A Rx for Extra Depth Diabetic Shoes with 3 pair of custom heat-molded inserts was dispensed, A thorough inspection of the patients Rxed shoegear and inserts was performed and their findings communicated. We reviewed the many important medical advantages for adhering to regularly wearing these toe/foot accommidative devices daily. We reviewed the fact that a failure to implement these recommedations may be deleterious to the patients foot health as there would be an inability to prevent many pedal complications. Such may lead to skin irritation, skin ulceration, infection, and even loss of toe/foot/leg/or their life. Time was also spent reviewing proper diabetic footcare practices including daily skin moisturization, daily foot inspection for any interruption in skin integrity, open lesions, or sign of infection such as redness/malodor/drainage/swelling. Also recommended was purposeful regular shoe inspection for the presence of internal foreign bodies as well as irregular shoe and insert wear. Patient questions re: shoes, inserts, and self foot inspections were answered to their satisfaction as the patient verbally confirmed a full understanding of the above information, Rx: Extra Depth Diabetic Shoes with 3 pair of custom heat-molded inserts.? * Follow Up:?3 Months * Images: * Sign off status: Completed true * Provider:?Jose South DPM Date:? 024 Generated for Denice carreno/Jann/Broitting on:?01/20/2024 03:01 PM EST History and Physical Notes * HPI (History of Present Illness) Category Sub-Category Detail Notes Category Not es Painful Nails Pt States Last PCP Visit: Date:: 01/22/2023 Examination Category Sub-Category Detail Notes Category Not es Neurological SENSORY: Neurological exa m demonstrates, reduced light touch sensation, reduced vibration sensation, B/L, at Forefoot, at Midfoot, 5.07 monofilament test performed at plantar aspects of 5 varied sites per foot shows sensation, reduced , B/L Dermatologic SKIN FINDINGS: Skin exam reveal s Keratotic lesion(s) located at, Heel, B/L Orthopedic FOOTWEAR: worn, nonsupportive DIGITAL DEFORMITIES: Digital contracture , PIPJ, 2-5 B/L, incompl-reducable to push-up test, no over, nor underlapping MUSCLE STRENGTH: 5/5 all groups in a symmetrical fashion , B/L General Examination GENERAL APPEARANCE: Reveals a pleasant, alert, well nourished, well developed, well hydrated individual, who demonstrates proper attention to hygene/body habitus, and is in no acute distress FOOT EXAM: Lower Extremity Neurological Exa m performed:: Yes Visual exam of foot performed:: Yes Date: 05/14/2023 Sensory testing performed:: sensations d iminished Pedal pulse taking performed:: 1+ ORIENTED: person, place, and t [place]an [place] Footwear Evaluation Footwear Evaluation performe d:: Yes Ophthalmology Referral DIABETES EYE EXAM Diabeti c Retinopathy Screening:: Yes 05/11/2021 Vascular DP PULSES(B): 02/13, B/L PT PULSES(B): 02/13, B/L EDEMA(C): 02/13, B/L, Ankle(s), Leg(s) Nails NAILS are: elongated,overgr own,dystrophic,greater than 3mm thick,discolored and friable with crumbly malodorous subungual debris, with dull to no pain on palpation due to neuropathy, 1-5 B/L
--- OUTSIDE RECORDS SUMMARY | 2024-01-20 15:02 | XMS_ITS ---
Author Organization [facility] Address [address] [facility] [place] [address] Care Team Providers Care Call Center Receptionist Name Role Phone Pete Fischer MD Primary Care Provider Antolin Hoffman Unavailable [phone] Jose South Unavailable [phone] Allergies No Known Allergies REASON FOR VISIT Painful nail(s) aggrevated by shoes and causing difficulty standing/walking. Medications Medication SIG (Take, Route, Frequency, Duration) Notes Start Date End Date Status Eye Drops Active Doxazosin Mesylate A ctive Extra Depth Diabetic Shoes with 3 Pair Custom heat-molded multi-density innersoles for 1 year Dx: 02/24/2020 N ot-Taking januvia Active Extra Depth Diabetic Shoes with 3 Pair Custom heat-molded multi-density innersoles for 1 year Dx: 06/26/2017 N ot-Taking TOLAZamide Active Extra Depth Diabetic Shoes with 3 Pair Custom heat-molded multi-density innersoles for 1 year Dx: A ctive Extra Depth Orthopedic Shoes (1 Pair) with Customized Heat Molded Multidensity Innersoles (3 Pair) as directed Dx: NIDDM/Polyneuropathy (E11.42), Hammertoe Foot Deformity (M20.41,M20.42), Preulcerative Skin Lesion(s) (L85.1 04/27/2018 Not-Taking Extra Depth Diabetic Shoes with 3 Pair Custom heat-molded multi-density innersoles for 1 year Dx: 08/24/2020 N ot-Taking Diabetic Insoles Act zayra glipiZIDE 5 MG 1 tablet Orally Once a day Active Tamsulosin HCl Activ e Metformin & Diet Manage Prod Active Lisinopril Active Social History Tobacco Use: [...] Signs Height 5 ft 10.5 in in 08/27/2023 Weight 237 lbs 08/27/2023 BMI 33.52 kg/m2 08/27/2023 Blood pressure systolic 120 mm Hg 08/27/19 24 Blood pressure diastolic 80 mm Hg 024 Encounters Encounter Location Date Provider Diagnosis [facility] [address] [address] 08/27/2023 Jose South Tinea unguium B35.1 ; Type 2 diabetes mellitus with diabetic polyneuropathy E11.42 ; Pain in left foot M79.672 ; Pain in right toe(s) M79.674 ; Pain in left toe(s) M79.675 and Xerosis cutis L85.3 Assessments Encounter Date Diagnosis (ICD Code) Assessment Notes Treatment Notes Treatment Clinical Notes Section Notes 08/27/2023 Tinea unguium (ICD-10 - B35.1) 08/27/2023 Type 2 diabetes mellitus with diabetic polyneuropathy (ICD-10 - E11.42) 08/27/2023 Pain in left foot (ICD-10 - M79.672) 08/27/2023 Pain in right toe(s) (ICD-10 - M79.674) 08/27/2023 Pain in left toe(s) (ICD-10 - M79.675) 08/27/2023 Xerosis cutis (ICD-10 - L85.3) Plan Of Treatment Medication Medication Name Sig Start Date Stop Date Notes Extra Depth Diabetic Shoes w ith 3 Pair Custom heat-molded multi-density innersoles for 1 year Dx: Next Appt Details Follow Up: 3 Months, Reason: Provider Name:Antolin Hernandez , 03/02/2024 09:00:00 AM, [address] [place] [address], [id number], Procedure Notes * Category Sub-Category Detail Notes [...] as necessary. Patient chooses, no pharmaceutical tx (34356) Keratoma Treatment Parring or Cutting o f Benign Hyperkeratotic Lesion(s) 46151 (2-4 Lesions) - The Benign hyperkeratotic lesions, as described above were pared, and/or cut utilizing a sterile #15 blade, tissue nippers, and/or dremel Progress Notes * Alex ARIASDOB: [birth year] (88 yo M)Acc No.[id number]:08/27/2023 Progress Note Patient:?Alex Arias Provider:?Jose South DPM :1935???Age:88 Y???Sex:Male Horace e:08/27/2023 Address:[address] [place], [place] [id number] Pcp:Pete Fischer MD Subjective: * Chief Complaints: * ??? Painful nail(s) aggrevat ed by shoes and causing difficulty standing/walking. * HPI: ???Painful Nails:?Pt States Last PCP Visit:?Date:?07/14/2023 * ROS:?General/Constitutional:?Nausea?denies.?Vomiting?denies.?Hunger Thirst?denies.?Loss appetite?denies.?Chills?denies.?Fatigue?denies.?Fever?denies.?Night Sweats?denies.?Unexplained weight loss?denies.?Unexplained [...] ?Marital status: . 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 * Medications:?TakingExtra Dep th Diabetic Shoes with 3 Pair Custom heat-molded multi-density innersoles for 1 year Dx:januvia Doxazosin Mesylate Eye Drops glipiZIDE 5 MG Tablet 1 tablet Orally Once a dayLisinopril Metformin & Diet Manage Prod Tamsulosin HCl TOLAZamide Diabetic Insoles Taking Extra Depth Diabetic Shoes with 3 Pair Custom heat-molded multi-density innersoles for 1 year Dx:Taking januvia Taking Doxazosin Mesylate Taking Eye Drops [...] innersoles for 1 year Dx:Not-Taking/PRN Extra Depth Orthopedic Shoes (1 Pair) with [...] :237, BMI:33.52, Shoe size:10.5, BP:120/80 mm Hg, BS:120. * ???Past Orders: ???Lab:HEMOGLOBIN A1C (GLYCO HEMOGLOBIN) (Order Date - 08/27/2023) (Collection Date - 07/14/2023) ? Value Reference Range ?HEMOGLOBIN A1C % (HH) 6.5 * Examination: ???Neurological: ?SENSORY:?Neurological exam demonstrates, reduced light touch sensation, reduced vibration sensation, B/L, at Forefoot, at Midfoot, 5.07 monofilament test performed at plantar aspects of 5 varied sites per foot shows sensation, reduced , B/L.?Vascular: ?DP PULSES:?4, B/L .?PT PULSES:?02/13, B/L .?EDEMA:? 4, B/L, Ankle(s), Leg(s).?Nails: ?NAILS are:?elongated,overgrown,dystrophic,greater than 3mm [...] as necessary. Patient chooses, no pharmaceutical tx (55244).?Keratoma Treatment:?Parring or Cutting of Benign Hyperkeratotic Lesion(s)?98051 (2-4 Lesions) - The Benign hyperkeratotic lesions, as described above were pared, and/or cut utilizing a sterile #15 blade, tissue nippers, and/or dremel.? * Procedure Codes:?56391 TRIM SKIN LESIONS, 2 TO 4, Modifiers: [...] South DPM Date:? 024 Generated for Denice carreno/Jann/Nishant on:?01/20/2024 03:01 PM EST History and Physical Notes * HPI (History of Present Illness) Category Sub-Category Detail Notes Category Not es Painful Nails Pt States Last PCP Visit: Date:: 07/14/2023 Examination Category Sub-Category Detail Notes Category Not [...]
--- OUTSIDE RECORDS SUMMARY | 2024-01-20 15:02 | XMS_ITS | Patient Health Record ---
Author Organization [facility] Address [address] [place] [address] Care Team Providers Care Lecturer In Marketing Name Role Phone Pete Fischer MD Primary Care Provider Antolin Hoffman Unavailable [phone] Jose South Unavailable [phone] Allergies No Known Allergies Results Component Value Reference Range Notes HEMOGLOBIN A1C (GLYCOHEMOGLO BIN) Reviewed date:08/27/2023 08:30:14 AM Interpretation: Performing Lab: Notes/Report: HEMOGLOBIN A1C % (HH) 6.5 Reason For Referral No Information Medications Medication SIG (Take, Route, Frequency, Duration) Notes Start Date End Date Status januvia Active Eye Drops Active Doxazosin Mesylate A ctive TOLAZamide Active Lisinopril Active glipiZIDE 5 MG 1 tablet Orally Once a day Active Tamsulosin HCl Activ e Metformin & Diet Manage Prod Active Immunizations Vaccine Route Administration Date Status Comme nts COVID-19 Moderna Vaccine Unknown 01/15/2021 Administered 03/13/2020 04/10/2020 Influenza Unknown 11/27/2016 Refused Influenza Unknown 08/18/2017 Administered Influenza Unknown 01/14/2022 Administered Social History Tobacco Use: Social History Observation [...] Polyneuropathy due to type 2 diabetes mellitus ([id number]) Type 2 diabetes mellitus with diabetic polyneuropathy (E11.42) Active confirmed Vital Signs Blood pressure diastolic 65 mm Hg 12/02/2023 Height 5 ft 10.5 in in 12/02/2023 Blood pressure systolic 125 mm Hg 12/02/2023 Weight 230 lbs 12/02/2023 BMI 32.53 kg/m2 12/02/2023 Procedures Procedure Date Ordered Date Performed Result Body Sit e 81738-XGRXBVK NAIL, 6 OR MORE 12/02/2023 N/A 21299-GZKV SKIN LESIONS, 2 TO 4 12/02/2023 N/A Encounters Encounter Location Date Provider Diagnosis [address] [address] 02/12/2023 Jose South Tinea unguium B35.1 ; Type 2 diabetes mellitus with diabetic polyneuropathy E11.42 ; Pain in left foot M79.672 ; Pain in right toe(s) M79.674 ; Pain in left toe(s) M79.675 and Xerosis cutis L85.[address] [address] 05/14/2023 Jose South Tinea unguium B35.1 ; Type 2 diabetes mellitus with diabetic polyneuropathy E11.42 ; Pain in left foot M79.672 ; Pain in right toe(s) M79.674 ; Pain in left toe(s) M79.675 and Xerosis cutis L85.[address] [address] 08/27/2023 Jose South Tinea unguium B35.1 ; Type 2 diabetes mellitus with diabetic polyneuropathy E11.42 ; Pain in left foot M79.672 ; Pain in right toe(s) M79.674 ; Pain in left toe(s) M79.675 and Xerosis cutis L85.[address] [address] 12/02/2023 Antolin Hernandez Type 2 diabetes mellitus with diabetic polyneuropathy E11.42 and Tinea unguium B35.1 Assessments Encounter Date Diagnosis (ICD Code) Assessment Notes Treatment Notes Treatment Clinical Notes Section Notes 02/12/2023 Tinea unguium (ICD-10 - B35.1) 05/14/2023 Tinea unguium (ICD-10 - B35.1) 08/27/2023 Tinea unguium (ICD-10 - B35.1) 12/02/2023 Type 2 diabetes mellitus with diabetic polyneuropathy (ICD-10 - E11.42) 12/02/2023 Tinea unguium (ICD-10 - B35.1) 08/27/2023 Type 2 diabetes mellitus with diabetic polyneuropathy (ICD-10 - E11.42) 05/14/2023 Type 2 diabetes mellitus with diabetic polyneuropathy (ICD-10 - E11.42) 02/12/2023 Type 2 diabetes mellitus with diabetic polyneuropathy (ICD-10 - E11.42) 02/12/2023 Pain in left foot (ICD-10 - M79.672) 05/14/2023 Pain in left foot (ICD-10 - M79.672) 08/27/2023 Pain in left foot (ICD-10 - M79.672) 08/27/2023 Pain in right toe(s) (ICD-10 - M79.674) 05/14/2023 Pain in right toe(s) (ICD-10 - M79.674) 02/12/2023 Pain in right toe(s) (ICD-10 - M79.674) 02/12/2023 Pain in left toe(s) (ICD-10 - M79.675) 05/14/2023 Pain in left toe(s) (ICD-10 - M79.675) 08/27/2023 Pain in left toe(s) (ICD-10 - M79.675) 05/14/2023 Xerosis cutis (ICD-10 - L85.3) 08/27/2023 Xerosis cutis (ICD-10 - L85.3) 02/12/2023 Xerosis cutis (ICD-10 - L85.3) Plan Of Treatment Pending Test Test Name Order Date X ray : Foot, left 3V 11/01/2016 X ray : Foot, right 3V 11/26/2012 05231-KVDCGHG NAIL, 6 OR MORE 06/22/2012 79491-MIZIWWV NAIL, 6 OR MORE 09/23/2012 70392-LAEPGPM NAIL, 6 OR MORE 12/02/2011 94597-YKJYDNB NAIL, 6 OR MORE 03/26/2012 69615-CHLFHQB NAIL, 6 OR MORE 10/24/2010 88287-XPYJWLC NAIL, 6 OR MORE 02/20/2011 15403-MKTSFBN NAIL, 6 OR MORE 06/03/2011 16220-MYVPWZR NAIL, 6 OR MORE 09/02/2011 59171-XWEMWMM NAIL, 6 OR MORE 01/27/2013 19048-RWGOQYZ NAIL, 6 OR MORE 05/03/2013 56881-EVCLHAA NAIL, 6 OR MORE 10/25/2013 10908-LVCHKBE NAIL, 6 OR MORE 01/10/2014 23817-MVQGCKU NAIL, 6 OR MORE 04/04/2014 50724-LFKKCDM NAIL, 6 OR MORE 09/08/2014 76957-BWOWLBW NAIL, 6 OR MORE 12/08/2014 37078-WWDZUUN NAIL, 6 OR MORE 03/08/2015 55133-FAHEJHZ NAIL, 6 OR MORE 11/26/2012 19244-DTXFCXG NAIL, 6 OR MORE 09/18/2016 98803-MIGYOOG NAIL, 6 OR MORE 11/27/2016 13357-VSGLPKT NAIL, 6 OR MORE 06/26/2017 01491-AMDJRON NAIL, 6 OR MORE 06/12/2015 71725-UZTDOVR NAIL, 6 OR MORE 09/11/2015 34362-NBJXXNO NAIL, 6 OR MORE 12/11/2015 38306-VWAYJZG NAIL, 6 OR MORE 03/06/2016 85842-GUWTHUF NAIL, 6 OR MORE 01/26/2018 52849-UQBNRJC NAIL, 6 OR MORE 10/08/2017 95594-EGGYFEV NAIL, 6 OR MORE 12/02/2023 50605-DQFX SKIN LESIONS, 2 TO 4 12/02/19 24 50368-NXCI SKIN LESIONS, 2 TO 4 01/27/20 37109-TROB SKIN LESIONS, 2 TO 4 04/28/19 19 70583-QQWT SKIN LESIONS, 2 TO 4 08/04/19 19 51719-PRZX SKIN LESIONS, 2 TO 4 11/03/19 19 59375-IQIR SKIN LESIONS, 2 TO 4 04/21/19 20 94168-BGKY SKIN LESIONS, 2 TO 4 06/11/20 20 87252-FUNP SKIN LESIONS, 2 TO 4 11/03/19 20 61646-HTLF SKIN LESIONS, 2 TO 4 02/23/19 21 42414-ITNI SKIN LESIONS, 2 TO 4 05/25/19 21 95028-ZVUS SKIN LESIONS, 2 TO 4 08/25/19 21 13584-BXFB SKIN LESIONS, 2 TO 4 11/28/19 21 31620-RBGC SKIN LESIONS, 2 TO 4 03/14/19 22 17320-ONZL SKIN LESIONS, 2 TO 4 06/18/19 17 79816-VIXH SKIN LESIONS, 2 TO 4 09/19/19 17 58517-VEJU SKIN LESIONS, 2 TO 4 12/11/19 16 78701-KRLQ SKIN LESIONS, 2 TO 4 09/11/19 16 89775-NLEQ SKIN LESIONS, 2 TO 4 06/12/19 16 72184-DDYW SKIN LESIONS, 2 TO 4 10/09/19 18 50810-ZHQP SKIN LESIONS, 2 TO 4 06/27/19 18 57201-YFJI SKIN LESIONS, 2 TO 4 11/28/19 17 82613-PONT SKIN LESIONS, 2 TO 4 03/08/19 16 75122-OKOL SKIN LESIONS, 2 TO 4 12/09/19 15 56033-DDIV SKIN LESIONS, 2 TO 4 09/09/19 15 58081-JKWG SKIN LESIONS, 2 TO 4 04/04/19 15 43874-GGJK SKIN LESIONS, 2 TO 4 01/11/20 14 83785-ZCJJ SKIN LESIONS, 2 TO 4 10/26/19 14 47010-TXJF SKIN LESIONS, 2 TO 4 05/04/19 14 30899-EYUK SKIN LESIONS, 2 TO 4 08/13/19 14 41481-JIJF SKIN LESIONS, 2 TO 4 01/28/20 13 20622-KEGB SKIN LESIONS, 2 TO 4 09/02/19 12 21706-OLZL SKIN LESIONS, 2 TO 4 06/03/19 12 11518-BNXS SKIN LESIONS, 2 TO 4 02/20/19 12 17463-EFRZ SKIN LESIONS, 2 TO 4 10/25/19 11 84403-CTIU SKIN LESIONS, 2 TO 4 03/26/19 13 94976-YEQV SKIN LESIONS, 2 TO 4 12/02/19 12 58233-QZUD SKIN LESIONS, 2 TO 4 09/24/19 13 27474-GMOV SKIN LESIONS, 2 TO 4 10/17/20 13 Next Appt Details Provider Name:Antolin V David , 03/02/2024 09:00:00 AM, [address] [facility], [place], [address], Insurance Providers Payer Name Payer Address Payer Phone Subscriber Number Group Number Insured Name Patient Relationship to Insured Coverage Start Date Coverage End Date [employer] [address] [place] [address] [id number] Alex Arias Self - patient is the insured Medical (General) History Medical History History ICD Code mumps type II diabetes covid-19 Hypertension Surgical History Surgery Date(Month/Year) prostate surgery 06/24/2014 Hospitalization History Reason Date(Month/Year) [facility] [place]- pneumonia xrays of lungs same day
== END 2024-01-13 14:46 | disposition home or self-care (01) ==
LOC: HO.SH 14:45
PROVIDERS: Visit Provider Internal Medicine
DX: Z01.10 Encounter for examination of ears and hearing without abnormal findings (principal)
CPT/HCPCS: 92557; 92567

== ENCOUNTER 2024-10-22 10:56 | Outpatient (AMB) | payer MEDICARE, SELFPAY ==
--- NOTE | 2024-10-22 11:00 | A.OFFPC_ITS ---
Vital Signs 10/22/24 11:03 Height 5 ft 10.5 in Weight 227 lb BMI 32.1 BP 140/52 H Blood Pressure Location Lt brachial Position Sitting Respiration 18 Pulse 60 Pulse Source Pulse Oximeter Temp 97.5 F Pulse Oximetry (%) 96 Oxygen Delivery Method Room Air Intake Visit Reasons: Routine / Dr Fischer - see comments Cloth Trimmer Hand Required: No Accompanied by: Spouse Allergies No Known Allergies Allergy (Verified 10/22/24 11:00) Tobacco use date assessed: 10/22/24 HPI HPI Comments History of Present Illness Details The patient is an 89-year-old male presenting for a routine follow-up for chronic condition management. He manages multiple chronic conditions, including essential hypertension, glaucoma, benign prostatic hyperplasia, type 2 diabetes mellitus, and stage 3 chronic kidney disease. The patient reports a blood pressure reading of 140/50 mmHg, which is on the higher end, especially given his active and functional state. He expresses a belief that blood pressure should be higher, but understands the goal is closer to 120-130 mmHg to reduce the risk of cardiovascular and cerebrovascular events. His diabetes medication regimen includes glipizide 5 mg twice daily and Januvia 50 mg once daily. He expresses awareness of his blood sugar fluctuations, particularly when consuming alcohol, which he reports as an occasional intake of weak beers. He is aware that both lifestyle and medication adherence are critical for managing his diabetes and kidney health. The patient is also managing benign prostatic hyperplasia with tamsulosin 0.4 mg taken nightly, and he uses timolol eye drops for glaucoma management. He denies experiencing any acute symptoms or concerns during this visit but brings up the progressive nature of his hearing impairment, which he has yet to address fully with hearing aids. The patient does not have a history of smoking and drinks alcohol sparingly, mainly noting it affects his sugar levels overnight. He continues with routine visits to the assisted living housekeeper to monitor kidney function every six months and acknowledges the role of long-term metformin use in his current kidney condition. 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; 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 - Does not smoke; drinks alcohol occasio sabino in moderation (weak beer) - Active and functional, continues to en jimbo in independent activities - Interested in automobiles and particip ates in car shows - Reports dietary habits include bananas , peanut butter, and vinegar [facility] Medical History (Updated 10/22/24 @ 11:22 by Sebastien Prado MD) CKD stage 3b, GFR 30-44 ml/min BPH (benign prostatic hyperplasia) Glaucoma Diabetes Hypertension Questionnaire Thrive Questionnaire Date Thrive assessed: 10/22/24 I am a: Patient What is your living situation today?: I have a steady place to live Within the past 12 months, did the food you bought not last and you didn't have the money to get more?: Never true Within the past 12 months, did you worry whether your food would run out before you got money to buy more?: Never true Do you have trouble paying for medicines?: No Do you have trouble getting transportation to medical appointments?: No Do you have trouble paying your heating and electricity bill?: No Do you have trouble taking care of your child, family member or friend?: No Do you have trouble with day-to-day activities such as bathing, preparing meals, shopping, managing finances, etc.?: No Are you currently unemployed and looking for a job?: No Are you interested in more education?: No THRIVE Score: 0 AUDIT C Alcohol Use Questionnaire (AUDIT-C) 1. How often do you have a drink containing alcohol?: 2-4 times a month 2. How many drinks containing alcohol do you have on a typical day when you are drinking?: 3 or 4 3. How often do you have six or more drinks on one occasion?: Never Total Score: 3 Score Reviewed/Action Taken: Yes KEN-7 AMB Questionnaire KEN-7 Date KEN - 7 assessed: 10/22/24 Feeling nervous, anxious, or on edge: 0 = Not at all Not being able to stop or control worryin = Not at all Worrying too much about different things: 0 = Not at all Trouble relaxin = Not at all Being so restless that it is hard to sit still: 0 = Not at all Becoming easily annoyed or irritable: 0 = Not at all Feeling afraid as if something awful might happen: 0 = Not at all Total KEN-7 score (0-4 normal; 5-9 mild; 10-14 moderate; 15-21 severe): 0 Source: Developed by Drs. Javier Cifuentes, Pushpa Cabrera, Cristobal Dunn and colleagues, with an educational emilee from [employer]. KEN-7 Assessment Billing KEN-7 Assessment Tool: KEN-7 Assessment 82532 Review of Systems Const Details: - Cardiovascular: Denies chest pain - Endocrine: Reports issues with fluctuating blood sugar levels - Eyes: Reports diagnosis of glaucoma - : Reports use of tamsulosin for benign prostatic hyperplasia - ENT: Reports hearing impairment, does not currently use hearing aids All systems reviewed & are unremarkable except as reviewed in HPI and above Physical exam (Primary Care) Vital Signs: Last Vital Signs Temp 97.5 F 10/22/24 11:03 Pulse 60 10/22/24 11:03 Resp 18 10/22/24 11:03 BP 140/52 H 10/22/24 11:03 Pulse Ox 96 10/22/24 11:03 Oxygen Delivery Method Room Air 10/22/24 11:03 BMI result Body Mass Index 32.1 Tobacco/Smoking Status: Tobacco use Status Tobacco use date assessed 10/22/24 10/22/24 11:00 Const Other: General: +Alert and oriented, Well nourished, No acute distress. Eye: Pupils are equal, round and reactive to light, Intact accommodation, Extraocular movements are intact, Normal conjunctiva, Vision unchanged. HENT: Normocephalic, Atraumatic, Tympanic membranes are clear, Hearing is impaired, Oral mucosa is moist, No pharyngeal erythema, Ear canals patent. Respiratory: Lungs CTA bilaterally, No wheeze, Respirations are non-labored. Cardiovascular: Regular rate, Regular rhythm, S1 auscultated, S2 auscultated, No murmur, Good pulses equal in all extremities, Normal peripheral perfusion, No edema. Gastrointestinal: Soft, Non-tender, Non-distended, Normal bowel sounds, No organomegaly. Musculoskeletal: Normal range of motion, Normal strength, No tenderness, No swelling, No deformity, Normal gait. Integumentary: Warm, Dry, [place], Intact. Neurologic: Alert, Oriented, Normal sensory, Normal motor function, No focal defects, Cranial Nerves II-XII are grossly intact, Normal deep tendon reflexes. Psychiatric: Cooperative, Appropriate mood & affect, Normal judgment. Coding Level of Care Code New Pt Level 4 (83252) Complex EM visit Add On G2211 Diagnoses Hypertension, unspecified type I10 Hypertension type: unspecified Type 2 diabetes mellitus without complication, without long-term current use of insulin E11.9 Diabetes mellitus type: type 2 Diabetes mellitus french binding folder insulin use: without french binding folder use Diabetes mellitus complication status: without complication Glaucoma, unspecified glaucoma type, unspecified laterality H40.9 Glaucoma type: unspecified Laterality: unspecified laterality Benign prostatic hyperplasia, unspecified whether lower urinary tract symptoms present N40.0 Lower urinary tract symptom presence: unspecified whether lower urinary tract symptoms present CKD stage 3b, GFR 30-44 ml/min N18.32 Additional Codes KEN-7 Assessment Billing - KEN-7 Assessment Tool: KEN-7 Assessment 79856 ([id number]) Assessment & Plan Assessment & Plan (1) Hypertension: Comment: - Monitor blood pressure regularly, aim for a target of <130/80 mmHg. - Encourage lifestyle modifications, reduced salt intake. - Consider medication adjustment if home blood pressure remains high. - Continue lisinopril 10 mg b.i.d. Code(s): I10 - Essential (primary) hypertension Category: Medical Qualifiers: Hypertension type: unspecified Qualified Code(s): I10 - Essential (primary) hypertension (2) Diabetes: Comment: - Continue glipizide and Januvia as prescribed. - Monitor blood sugars regularly, particularly after alcohol consumption. - Perform routine lab tests to assess glycemic control and kidney function. Code(s): E11.9 - Type 2 diabetes mellitus without complications Category: Medical Qualifiers: Diabetes mellitus type: type 2 Diabetes mellitus french binding folder insulin use: without french binding folder use Diabetes mellitus complication status: without complication Qualified Code(s): E11.9 - Type 2 diabetes mellitus without complications (3) Glaucoma: Comment: - Continue timolol eye drops as part of ongoing management. - Schedule regular ophthalmology follow-ups. Code(s): H40.9 - Unspecified glaucoma Category: Medical Qualifiers: Glaucoma type: unspecified Laterality: unspecified laterality Qualified Code(s): H40.9 - Unspecified glaucoma (4) BPH (benign prostatic hyperplasia): Comment: - Continue tamsulosin 0.4 mg nightly. - Monitor symptoms and adjust treatment if necessary. Code(s): N40.0 - Benign prostatic hyperplasia without lower urinary tract symptoms Category: Medical Qualifiers: Lower urinary tract symptom presence: unspecified whether lower urinary tract symptoms present Qualified Code(s): N40.0 - Benign prostatic hyperplasia without lower urinary tract symptoms (5) CKD stage 3b, GFR 30-44 ml/min: Comment: - Continue follow-up with nephrology. - Monitor kidney function tests regularly. Code(s): N18.32 - Chronic kidney disease, stage 3b Category: Medical Plan: Health Maintenance: - Monitor blood pressure at home twice a week - Blood work to check cholesterol, sugars, thyroid, vitamin D levels - Follow up with nephrology every six months for kidney health - Reduce salt intake to assist with hypertension management - Encourage continued physical activity and healthy aging Plan During the visit, I discussed the importance of maintaining good control over the patient's chronic conditions, particularly hypertension and diabetes, as these can impact his kidney function. We reviewed the potential necessity to adjust his blood pressure medication if home measurements remain elevated. For diabetes management and alcohol intake, I emphasized the impact of alcohol on blood sugar levels and why monitoring is essential. Additionally, I addressed the importance of regular eye exams for glaucoma and maintaining compliance with prescribed medications. We also explored steps to take regarding his hearing impairment, including [facility]. I provided an overview of his laboratory evaluation today, including recommendations for cholesterol and thyroid testing, to guide ongoing management. We agreed to follow up in three months to assess his blood pressures and overall health standing, with the possibility of extending to six months based on his condition. Orders: Orders Comprehensive Met. Panel Today E11.9 - Type 2 diabetes mellitus without complications, H40.9 - Unspecified glaucoma, I10 - Essential (primary) hypertension Hemoglobin A1c Today E11.9 - Type 2 diabetes mellitus without complications, H40.9 - Unspecified glaucoma, I10 - Essential (primary) hypertension Syphilis Screen Today E11.9 - Type 2 diabetes mellitus without complications, H40.9 - Unspecified glaucoma, I10 - Essential (primary) hypertension Complete Blood Count Auto Diff Today E11.9 - Type 2 diabetes mellitus without complications, H40.9 - Unspecified glaucoma, I10 - Essential (primary) hypertension TSH reflex Free T4 Today E11.9 - Type 2 diabetes mellitus without complications, H40.9 - Unspecified glaucoma, I10 - Essential (primary) hypertension Vitamin D 25-OH Total Today E11.9 - Type 2 diabetes mellitus without complications, H40.9 - Unspecified glaucoma, I10 - Essential (primary) h ypertension Medications: Discontinued sitagliptin phosphate (Irvinguvlinette) Discontinued Reason: Duplicate 50 mg PO DAILY 90 tabs 3RF Patient Instructions: - Check blood pressure at home twice a week; record results. - Limit salt intake in your diet. - Monitor and record blood sugar levels, especially after drinking alcohol. - Continue taking all prescribed medications. - Follow up with your assisted living housekeeper as scheduled. - [facility] and potential hearing [facility]. - Return in three months for a follow-up, unless otherwise advised. - Continue regular exercise and maintain a balanced diet with current foods you enjoy like bananas and peanut butter.
[2024-10-22 11:03] VITALS: BP 140/52; PULSE 60; RESP 18; TEMP 36.4; O2SAT 96; BMI 32.1
--- OUTSIDE RECORDS SUMMARY | 2024-10-22 12:36 | XMS_ITS | Patient Health Record ---
Author Organization [facility] Address [address] [place] [address] Care Team Providers Care Business Services Tech Name Role Phone Jona Thomson Jr Reason For Referral No Information Plan Of Treatment No Information
--- OUTSIDE RECORDS SUMMARY | 2024-10-22 12:36 | XMS_ITS | Encounter Summary ---
Author Organization [facility] Address [address] [place] [address] Phone Care Team Providers Care Ob/Gyn Doctor Name Role Phone Pete Fischer MD Primary Care Provider [phone] Encounter Details Date Type Department Care Team (Late st Contact Info) Description 01/16/2024 Documentation Only [facility] [address] [place] [address] Aleyda Sage [address] [place] [phone] Social History Tobacco Use Types Packs/Day Years Used Date Smoking Tobacco: Never Assessed Sex and Gender Information Value Date Recorded Sex Assigned at Not on file Legal Sex Male 3:27 PM EDT Gender Identity Not on file Sexual Orientation Not on file documented as of this encounter Plan of Treatment Upcoming Encounters Date Type Department Care Team (Late st Contact Info) Description 01/24/2025 2:00 PM EST Office Visit [facility] [address] [place] [address] Mendez Muniz MD [address] [place] [address] [place] [address] documented as of this encounter Visit Diagnoses Not on filedocumented in this encounter Care Teams Ob/Gyn Doctor Relationship Specialty Start Date End Date Pete Fischer MD [address] [place], [place] PCP - General Internal Medicine 08/04/20 documented as of this encounter
--- OUTSIDE RECORDS SUMMARY | 2024-10-22 12:36 | XMS_ITS | Patient Health Record ---
Author Organization [facility] Gal [facility] Address [address] [facility] [place] [address] Care Team Providers Care Steel Rule Die Maker Name Role Phone Frank Santa Primary Care Provider Antolin Hernandez Unavailable [phone] Allergies No Known Allergies Results Component Value Reference Range Notes HEMOGLOBIN A1C (GLYCOHEMOGLO BIN) Reviewed date:09/03/2024 12:03:16 PM Interpretation: Performing Lab: Notes/Report: HEMOGLOBIN A1C % (HH) 6.5 Reason For Referral No Information Medications Medication SIG (Take, Route, Frequency, Duration) Notes Start Date End Date Status Lisinopril Active Tamsulosin HCl Activ e glipiZIDE 5 MG 1 tablet Orally Once a day Active Doxazosin Mesylate A ctive Eye Drops Active Extra Depth Orthopedic Shoes (1 Pair) with Customized Heat Molded Multidensity Innersoles (3 Pair) as directed Dx: NIDDM/Polyneuropathy (E11.42), Hammertoe Foot Deformity (M20.41,M20.42), Preulcerative Skin Lesion(s) (L85.1 06/01/2024 Active januvia Active TOLAZamide Active Metformin & Diet Manage Prod Not-Taking Immunizations Vaccine Route Administration Date Status Comme nts Influenza Unknown 11/27/2016 Refused Influenza Unknown 08/18/2017 Administered Influenza Unknown 01/14/2022 Administered Influenza Unknown 11/11/2023 Administered COVID-19 Moderna Vaccine Unknown 01/15/2021 Administered 03/13/2020 04/10/2020 Social History Tobacco Use: Social History Observation Description Date Details (start date - stop date) Never Smoker NA - NA Tobacco use other than smoking: Question Answer Notes Are you an other tobacco user? No Tobacco Control (Standard) Question Answer Notes Tobacco use: Nonsmoker Additional Findings: Tobacco non-user Current no nsmoker AUDIT-C (Standard) Question Answer Notes Did you have a drink containing alcohol in the p ast year? No Points 0 Interpretation Negative Problems Problem Type SNOMED Code ICD Code Onset Dates Problem Status W/U Status Risk Notes Problem Acquired hammer toe of right foot (9710419637508577 ) Other hammer toe(s) (acquired), right foot (M20.41) Active confirmed Problem Acquired hammer toe of left foot (2821374514457196 ) Other hammer toe(s) (acquired), left foot (M20.42) Active confirmed Problem Polyneuropathy due to type 2 diabetes mellitus (289533291) Type 2 diabetes mellitus with diabetic polyneuropathy (E11.42) Active confirmed Vital Signs Blood pressure diastolic 65 mm Hg 09/03/2024 Height 5 ft 10.5 in in 09/03/2024 Blood pressure systolic 128 mm Hg 09/03/2024 Weight 230 lbs 09/03/2024 BMI 32.53 kg/m2 09/03/2024 Procedures Procedure Date Ordered Date Performed Result Body Sit e 42406-BCHBDAG NAIL, 6 OR MORE 12/02/2023 N/A 00216-KDHN SKIN LESIONS, 2 TO 4 12/02/2023 N/A 12932-ZUERLFQ NAIL, 6 OR MORE 03/02/2024 N/A 46858-BKJG SKIN LESIONS, 2 TO 4 03/02/2024 N/A 62192-TJOCMTP NAIL, 6 OR MORE 06/01/2024 N/A 42530-YGLF SKIN LESIONS, 2 TO 4 06/01/2024 N/A 51969-YLFEVKR NAIL, 6 OR MORE 09/03/2024 N/A 42223-OMLW SKIN LESIONS, 2 TO 4 09/03/2024 N/A Encounters Encounter Location Date Provider Diagnosis [facility] [address] [address] 12/02/2023 Antolin Hernandez Type 2 diabetes mellitus with diabetic polyneuropathy E11.42 and Tinea unguium B35.1 [facility] [address] [address] 03/02/2024 Antolin Hernandez Type 2 diabetes mellitus with diabetic polyneuropathy E11.42 and Tinea unguium B35.[address] [address] 06/01/2024 Antolin Hernandez Type 2 diabetes mellitus with diabetic polyneuropathy E11.42 ; Tinea unguium B35.1 ; Other hammer toe(s) (acquired), right foot M20.41 and Other hammer toe(s) (acquired), left foot M20.[address] [address] 09/03/2024 Antolin Hernandez Type 2 diabetes mellitus with diabetic polyneuropathy E11.42 and Tinea unguium B35.1 Assessments Encounter Date Diagnosis (ICD Code) Assessment Notes Treatment Notes Treatment Clinical Notes Section Notes 12/02/2023 Type 2 diabetes mellitus with diabetic polyneuropathy (ICD-10 - E11.42) 12/02/2023 Tinea unguium (ICD-10 - B35.1) 03/02/2024 Type 2 diabetes mellitus with diabetic polyneuropathy (ICD-10 - E11.42) 03/02/2024 Tinea unguium (ICD-10 - B35.1) 06/01/2024 Type 2 diabetes mellitus with diabetic polyneuropathy (ICD-10 - E11.42) 06/01/2024 Tinea unguium (ICD-10 - B35.1) 09/03/2024 Type 2 diabetes mellitus with diabetic polyneuropathy (ICD-10 - E11.42) 09/03/2024 Tinea unguium (ICD-10 - B35.1) 06/01/2024 Other hammer toe(s) (acquired), right foot (ICD-10 - M20.41) Patient Educated with: DIABETIC FOOT CARE INSTRUCTIONS. pdf (DIABETIC FOOT CARE INSTRUCTIONS. pdf) 06/01/2024 Other hammer toe(s) (acquired), left foot (ICD-10 - M20.42) Plan Of Treatment Pending Test Test Name Order Date X ray : Foot, left 3V 11/01/2016 X ray : Foot, right 3V 11/26/2012 95153-PXUOJSX NAIL, 6 OR MORE 06/22/2012 57859-ZXSCAUA NAIL, 6 OR MORE 09/23/2012 75352-MOSRQHT NAIL, 6 OR MORE 12/02/2011 25724-KHSQKYA NAIL, 6 OR MORE 03/26/2012 33330-UNYHJVW NAIL, 6 OR MORE 10/24/2010 96535-EAEAPKJ NAIL, 6 OR MORE 02/20/2011 86268-HJSEFGQ NAIL, 6 OR MORE 06/03/2011 06048-GNZKKCK NAIL, 6 OR MORE 09/02/2011 16886-BIVQWXJ NAIL, 6 OR MORE 01/27/2013 00491-EQMVNZF NAIL, 6 OR MORE 05/03/2013 83805-THCZVMF NAIL, 6 OR MORE 10/25/2013 67405-TQIRUJV NAIL, 6 OR MORE 01/10/2014 76488-YVMKWTX NAIL, 6 OR MORE 04/04/2014 19471-KQNOPKA NAIL, 6 OR MORE 09/08/2014 60227-HVOFFUJ NAIL, 6 OR MORE 12/08/2014 75812-ATSHBVW NAIL, 6 OR MORE 03/08/2015 78948-XBNSAUZ NAIL, 6 OR MORE 11/26/2012 59593-PLFJEBT NAIL, 6 OR MORE 09/18/2016 38699-PDPZVFJ NAIL, 6 OR MORE 11/27/2016 55600-RDCXWGF NAIL, 6 OR MORE 06/26/2017 54531-TXWNQLS NAIL, 6 OR MORE 06/12/2015 34800-EWMHHIP NAIL, 6 OR MORE 09/11/2015 87502-HMAXFUZ NAIL, 6 OR MORE 12/11/2015 97637-JLGCUCS NAIL, 6 OR MORE 03/06/2016 86307-RGVHBHF NAIL, 6 OR MORE 01/26/2018 87622-BUAVJUI NAIL, 6 OR MORE 10/08/2017 49615-WKUPDPU NAIL, 6 OR MORE 12/02/2023 26156-OQKHMDL NAIL, 6 OR MORE 03/02/2024 53843-BMCMXZM NAIL, 6 OR MORE 06/01/2024 94695-USUPINT NAIL, 6 OR MORE 09/03/2024 28195-NUTV SKIN LESIONS, 2 TO 4 09/04/19 62776-NXBL SKIN LESIONS, 2 TO 4 06/02/19 07006-GBWG SKIN LESIONS, 2 TO 4 03/02/19 73273-WYLI SKIN LESIONS, 2 TO 4 12/02/19 24 43220-APLI SKIN LESIONS, 2 TO 4 01/27/20 18 34966-IAGN SKIN LESIONS, 2 TO 4 04/28/19 19 17304-KFPV SKIN LESIONS, 2 TO 4 08/04/19 19 64450-XRZC SKIN LESIONS, 2 TO 4 11/03/19 19 76284-AVMA SKIN LESIONS, 2 TO 4 04/21/19 20 68234-JZOR SKIN LESIONS, 2 TO 4 07/22/19 03155-HYWK SKIN LESIONS, 2 TO 4 11/03/19 20 28544-CWIY SKIN LESIONS, 2 TO 4 02/23/19 21 57456-SAXU SKIN LESIONS, 2 TO 4 05/25/19 57417-PTQF SKIN LESIONS, 2 TO 4 08/25/19 21 09235-CCNL SKIN LESIONS, 2 TO 4 11/28/19 21 38877-LTOZ SKIN LESIONS, 2 TO 4 03/14/19 22 10366-TYIK SKIN LESIONS, 2 TO 4 06/18/19 17 40650-DTNO SKIN LESIONS, 2 TO 4 09/19/19 17 53798-ZAQN SKIN LESIONS, 2 TO 4 12/11/19 16 44506-XKGQ SKIN LESIONS, 2 TO 4 09/11/19 16 37765-LRUZ SKIN LESIONS, 2 TO 4 06/12/19 16 09488-UZZM SKIN LESIONS, 2 TO 4 10/09/19 18 97065-AQFV SKIN LESIONS, 2 TO 4 06/27/19 18 96112-FMAJ SKIN LESIONS, 2 TO 4 11/28/19 17 59216-NPFW SKIN LESIONS, 2 TO 4 03/08/19 16 00853-SDDH SKIN LESIONS, 2 TO 4 12/09/19 15 64146-FYLD SKIN LESIONS, 2 TO 4 09/09/19 15 43019-MJFI SKIN LESIONS, 2 TO 4 04/04/19 15 15685-SYZB SKIN LESIONS, 2 TO 4 01/11/20 14 66450-LBUR SKIN LESIONS, 2 TO 4 10/26/19 14 10557-RVFY SKIN LESIONS, 2 TO 4 05/04/19 14 37205-IVFL SKIN LESIONS, 2 TO 4 08/13/19 14 15806-LUPG SKIN LESIONS, 2 TO 4 01/28/20 13 75914-GZBB SKIN LESIONS, 2 TO 4 09/02/19 12 81270-FSIF SKIN LESIONS, 2 TO 4 06/03/19 12 29566-DAVN SKIN LESIONS, 2 TO 4 02/20/19 12 27626-LDAB SKIN LESIONS, 2 TO 4 10/25/19 11 24474-USSM SKIN LESIONS, 2 TO 4 03/26/19 13 84375-SBBC SKIN LESIONS, 2 TO 4 12/02/19 12 51691-XHLI SKIN LESIONS, 2 TO 4 09/24/19 13 84928-YGEF SKIN LESIONS, 2 TO 4 11/27/19 13 Next Appt Details Provider Name:Antolin Ac Hernandez , 12/21/2024 10:30:00 AM, [address] [place], [address], Insurance Providers Payer Name Payer Address Payer Phone Subscriber Number Group Number Insured Name Patient Relationship to Insured Coverage Start Date Coverage End Date [employer] [place] Medicare Advantage [facility] [address] [place] [address] [phone] [id number] Alex Arias Self - patient is the insured Medical (General) History Medical History History ICD Code mumps type II diabetes covid-19 Hypertension Surgical History Surgery Date(Month/Year) prostate surgery 06/24/2014 Hospitalization History Reason Date(Month/Year) C- pneumonia xrays of lungs same day
--- OUTSIDE RECORDS SUMMARY | 2024-10-22 12:36 | XMS_ITS | Encounter Summary ---
Author Organization [facility] Address [address] [place] [address] Phone Care Team Providers Care Aircraft Refueler Name Role Phone Pete Fischer MD Primary Care Provider [phone] Encounter Details Date Type Department Care Team (Late st Contact Info) Description 01/23/2024 Documentation Only [facility] [address] [place] [address] Aleyda Sage [address] [place] [phone] Social History Tobacco Use Types Packs/Day Years [...] Visit [facility] [address] [place] [address] Mendez Muniz MD [address] [place] [address] [place] [address] documented as of this encounter Visit Diagnoses Not on filedocumented in this encounter Care Teams Aircraft Refueler Relationship Specialty Start Date End Date Pete Fischer MD [address] [place], [place] PCP - General Internal Medicine 08/04/20 documented as of this encounter
--- OUTSIDE RECORDS SUMMARY | 2024-10-22 12:36 | XMS_ITS | Encounter Summary ---
Author Organization [facility] Address [address] [place] [address] Phone Care Team Providers Care Drawer In Name Role Phone Pete Fischer MD Primary Care Provider [phone] Encounter Details Date Type Department Care Team (Late st Contact Info) Description 07/26/2024 Documentation Only [facility] [address] [place] [address] Aleyda Sage [address] [place] [phone] Social History Tobacco Use Types Packs/Day Years [...] Visit [facility] [address] [place] [address] Mendez Muniz MD [address] [place] [address] [place] [address] documented as of this encounter Visit Diagnoses Not on filedocumented in this encounter Care Teams Drawer In Relationship Specialty Start Date End Date Pete Fischer MD [address] [place], [place] PCP - General Internal Medicine 08/04/20 documented as of this encounter
--- OUTSIDE RECORDS SUMMARY | 2024-10-22 12:36 | XMS_ITS | Clinical Summary ---
Author Organization [facility] Address [address] [place] [address] Phone Care Team Providers Care Field Checker Name Role Phone Pete Fischer MD Primary Care Provider [phone] Allergies No known active allergies Medications doxycycline (VIBRAMYCIN) 100 MG capsule 08/03/2020 Active glipiZIDE (GLUCOTROL XL) 5 MG 24 hr tablet 06/08/2020 Act zayra lisinopril 10 MG tablet 06/08/2020 Active Rhopressa 0.02 % solution 07/25/2020 Active SSD 1 % cream 06/06/2020 Activ e Januvia 50 MG tablet 06/20/2020 Active tamsulosin (FLOMAX) 0.4 MG 24 hr capsule 07/18/2020 Active Glucose Blood (FREESTYLE TEST ) 06/26/2020 Active Active Problems Problem Noted Date Diagnosed Date Stage 3b chronic kidney disease 01/23/2024 Serum creatinine above reference range 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 Hypertension Benign prostatic hyperplasia Encounters Date Type Department Care Team Description 07/26/2024 1:30 PM EDT Office Visit [facility] [address] [place] [address] Rafa Betts MD Stage 3b chronic kidney disease (HCC) (Primary Dx); Proteinuria, not otherwise specified 07/26/2024 Documentation Only [facility] [address] [place] [address] Aleyda Sage from Last 3 Months Immunizations Immunization Administration Dates Next Due Influenza (IM) Preservative Free 01/14/2022,07/0 10/2017 Moderna SARS-COV-2 01/15/2021 Social History Tobacco Use Types Packs/Day Years Used Date Smoking Tobacco: Never Assessed Sex and Gender Information Value Date Recorded Sex Assigned at Not on file Legal Sex Male 3:27 PM EDT Gender Identity Not on file Sexual Orientation Not on file Last Filed Vital Signs Vital Sign Reading Time Taken Comments Blood Pressure 138/50 07/26/2024 1:48 PM EDT Pulse 62 01/26/2024 2:45 PM EST Temperature - - Respiratory Rate - - Oxygen Saturation - - Inhaled Oxygen Concentration - - Weight - - Height - - Body Mass Index - - Plan of Treatment Upcoming Encounters Date Type Department Care Team (Late st Contact Info) Description 01/24/2025 2:00 PM EST Office Visit [facility], [address] [place] [phone] Mendez Muniz MD [address] [place] [address] [place] [phone] Health Maintenance Due Date Last Done Comments Pneumococcal Vaccine: 50+ Years (1 of 2 - PCV) 1954 Diabetes: Hemoglobin A1C 01/28/2023 08/08/2020 Diabetes: Ophthalmology Exam 01/28/2023 Diabetes: Pedal Pulse Checked 01/28/2023 Diabetes: Sensory Foot Exam 01/28/2023 Diabetes: Visual Foot Exam 01/28/2023 Influenza Vaccine (#1) 2024 2, 08/18/2017 Hepatitis B Vaccine Aged Out No longe r eligible based on patient's age to complete this topic Procedures Procedure Name Priority Date/Time Associated Diagnosis Comments HEMOGLOBIN A1C Routine 08/08/2020 2:26 PM EDT Stage 3b chronic kidney disease (HCC) from Last 3 Months or Most Recently Relevant to Health Maintenance Results * (ABNORMAL) Hemoglobin A1c (08/08/2020 2:26 PM EDT) Hemoglobin A1C 7.2(H) (4.0-5.6) % [facility] Comment: MONITORING: In known diabetic patients, hemoglobin A1c targets should be discussed with health care provider. DIAGNOSTIC USE: The [place] Diabetes Association (ADA) and the World Health Organization (WHO) recommend the use of HbA1c to diagnose diabetes using a threshold of 6.5%. Patients who have an HbA1c between 5.7% and 6.4% are considered at increased risk for developing diabetes in the future. CAUTION: Falsely low HbA1c results may be observed in patients with hemolytic anemia, homozygous forms of abnormal hemoglobin (e.g. SS, CC, SC), , recent blood loss or hemoglobin F greater than 7%. Fructosamine may be used as an alternate test in these cases. REFERENCE: ADA: Standards of Medical Care in Diabetes 2020, The Journal of Clinical and Applied Research and Education Volume 43, Supplement 1 Testing performed or reported by [facility], a Service of [facility], [address] [place] [address] Domi Bey MD, Gym Attendant Blood specimen (specimen) Venous blood / Unknown 08/08/2020 2:26 PM EDT 08/08/2020 2:28 PM EDT us Mendez Muniz MD LAB BLOOD ORDERABLES Final Re sult [facility] from Last 3 Months or Most Recently Relevant to Health Maintenance Insurance [facility] MCR Care Teams Field Checker Relationship Specialty Start Date End Date Pete Fischer MD [address] [place] PCP - General Internal Medicine 08/04/20
== END 2024-10-22 12:04 | disposition home or self-care (01) ==
PROVIDERS: PCP Student in an Organized Health Care Education/Training Program; Visit Provider Student in an Organized Health Care Education/Training Program
DX: I12.9 Hypertensive chronic kidney disease with stage 1 through stage 4 chronic kidney disease, or unspecified chronic kidney disease (principal); E11.9 Type 2 diabetes mellitus without complications; N18.32 Chronic kidney disease, stage 3b; H40.9 Unspecified glaucoma; N40.0 Benign prostatic hyperplasia without lower urinary tract symptoms

== ENCOUNTER → 2024-10-22 10:56 | Outpatient (BNVA) | payer MEDICARE, SELFPAY | PROVIDERS: PCP Internal Medicine; Visit Provider Student in an Organized Health Care Education/Training Program | DX: I12.9 Hypertensive chronic kidney disease with stage 1 through stage 4 chronic kidney disease, or unspecified chronic kidney disease (principal); E11.22 Type 2 diabetes mellitus with diabetic chronic kidney disease; N18.32 Chronic kidney disease, stage 3b; H40.9 Unspecified glaucoma; N40.0 Benign prostatic hyperplasia without lower urinary tract symptoms; Z79.84 Long term (current) use of oral hypoglycemic drugs; Z79.899 Other long term (current) drug therapy; Z13.39 Encounter for screening examination for other mental health and behavioral disorders | CPT/HCPCS: 96127; 99202 ==

== ENCOUNTER 2024-11-15 10:48 | Outpatient (REF) | payer MEDICARE, SELFPAY ==
--- OUTSIDE RECORDS SUMMARY | 2024-11-15 13:03 | XMS_ITS | Patient Health Record ---
Author Organization [facility] Address [address] [place] [address] Care Team Providers Care Rerecording Mixer Name Role Phone Jona Thomson Jr Reason For Referral No Information Plan Of Treatment No Information
--- OUTSIDE RECORDS SUMMARY | 2024-11-15 13:03 | XMS_ITS | Patient Health Record ---
Author Organization [facility] Address [address] [facility] [place] [address] Care Team Providers Care Dot Compliance Coordinator Name Role Phone Frank Santa Primary Care Provider Antolin Hernandez Unavailable [phone] Allergies No Known Allergies Results Component Value [...] Problem Acquired hammer toe of right foot (2758029914417331 ) Other hammer toe(s) (acquired), right foot (M20.41) Active confirmed Problem Acquired hammer toe of left foot (4973375108609675 ) Other hammer toe(s) (acquired), left foot (M20.42) Active confirmed Problem Polyneuropathy due to type 2 diabetes mellitus (469802596) Type 2 diabetes mellitus with diabetic polyneuropathy (E11.42) Active confirmed Vital Signs Blood pressure diastolic 65 mm Hg 09/03/2024 Height 5 ft 10.5 in in 09/03/2024 Blood pressure systolic 128 mm Hg 09/03/2024 Weight 230 lbs 09/03/2024 BMI 32.53 kg/m2 09/03/2024 Procedures Procedure Date Ordered Date Performed Result Body Sit e 45932-YQYOGGN NAIL, 6 OR MORE 12/02/2023 N/A 10611-MXFS SKIN LESIONS, 2 TO 4 12/02/2023 N/A 81996-MJETRXH NAIL, 6 OR MORE 03/02/2024 N/A 40363-AOCV SKIN LESIONS, 2 TO 4 03/02/2024 N/A 50552-QRCTFTS NAIL, 6 OR MORE 06/01/2024 N/A 68995-XNRB SKIN LESIONS, 2 TO 4 06/01/2024 N/A 73377-VAXTLGB NAIL, 6 OR MORE 09/03/2024 N/A 78164-ZWFM SKIN LESIONS, 2 TO 4 09/03/2024 N/A Encounters Encounter Location Date Provider Diagnosis [facility] [address] [address] 12/02/2023 Antolin Hernandez Type 2 diabetes mellitus with diabetic polyneuropathy E11.42 and Tinea unguium B35.1 [facility] [address] [address] 03/02/2024 Antolin Hernandez Type 2 diabetes mellitus with diabetic polyneuropathy E11.42 and Tinea unguium B35.[address] [address] 06/01/2024 Antolin Hernandez Type 2 diabetes mellitus with diabetic polyneuropathy E11.42 ; Tinea unguium B35.1 ; Other hammer toe(s) (acquired), right foot M20.41 and Other hammer toe(s) (acquired), left foot M20.[address] [address] 09/03/2024 Antolin Hernandez Type 2 diabetes mellitus [...] E11.42) 03/02/2024 Tinea unguium (ICD-10 - B35.1) 09/03/2024 Type 2 diabetes mellitus with diabetic polyneuropathy (ICD-10 - E11.42) 09/03/2024 Tinea unguium (ICD-10 - B35.1) 06/01/2024 Type 2 diabetes mellitus with diabetic polyneuropathy (ICD-10 - E11.42) 06/01/2024 Tinea unguium (ICD-10 - B35.1) 06/01/2024 Other hammer toe(s) (acquired), right foot (ICD-10 - M20.41) Patient Educated with: DIABETIC FOOT CARE INSTRUCTIONS. pdf (DIABETIC FOOT CARE INSTRUCTIONS. pdf) 06/01/2024 Other hammer toe(s) (acquired), left foot (ICD-10 - M20.42) Plan Of Treatment Pending Test Test Name Order Date X ray : Foot, left 3V 11/01/2016 X ray : Foot, right 3V 11/26/2012 08752-UQXUBVY NAIL, 6 OR MORE 06/22/2012 12931-LSPOZHW NAIL, 6 OR MORE 11/26/2012 09532-TVTAAKZ NAIL, 6 OR MORE 01/27/2013 47059-VCFXHII NAIL, 6 OR MORE 05/03/2013 80380-OZIWYZR NAIL, 6 OR MORE 02/20/2011 62988-SGQNOOQ NAIL, 6 OR MORE 06/03/2011 14015-DSJHMNJ NAIL, 6 OR MORE 09/02/2011 96292-QCVBBSJ NAIL, 6 OR MORE 03/26/2012 76556-JQTDNXD NAIL, 6 OR MORE 06/12/2015 32833-LOXSCQN NAIL, 6 OR MORE 12/11/2015 12350-YMTRGJV NAIL, 6 OR MORE 01/10/2014 42015-ZMTDHME NAIL, 6 OR MORE 04/04/2014 19226-PCHWJYW NAIL, 6 OR MORE 12/08/2014 80740-GZWRVEP NAIL, 6 OR MORE 03/08/2015 56933-DLCEFLB NAIL, 6 OR MORE 10/08/2017 32743-NBNCWQB NAIL, 6 OR MORE 11/27/2016 16960-PMTZCET NAIL, 6 OR MORE 06/26/2017 65115-CBEITEV NAIL, 6 OR MORE 12/02/2023 22547-RYPJQWV NAIL, 6 OR MORE 03/02/2024 26195-YUKFLCA NAIL, 6 OR MORE 09/03/2024 44852-QUPQTJN NAIL, 6 OR MORE 09/08/2014 95481-BCQUCKV NAIL, 6 OR MORE 10/24/2010 82990-RYKUKVK NAIL, 6 OR MORE 09/11/2015 16584-BOLONUW NAIL, 6 OR MORE 12/02/2011 09879-MKGBRIV NAIL, 6 OR MORE 03/06/2016 26659-KPZMUCP NAIL, 6 OR MORE 10/25/2013 17474-SQJBJDX NAIL, 6 OR MORE 06/01/2024 67058-BAAKVJA NAIL, 6 OR MORE 09/23/2012 47596-QOYSNQJ NAIL, 6 OR MORE 09/18/2016 17657-GSWCOCP NAIL, 6 OR MORE 01/26/2018 31640-FOSS SKIN LESIONS, 2 TO 4 09/24/19 13 36862-ODPG SKIN LESIONS, 2 TO 4 06/02/19 13448-LYEY SKIN LESIONS, 2 TO 4 04/28/19 19 84061-CRRO SKIN LESIONS, 2 TO 4 01/27/20 18 23221-XMUV SKIN LESIONS, 2 TO 4 10/26/19 14 11436-RWNU SKIN LESIONS, 2 TO 4 08/25/19 21 56968-OGIX SKIN LESIONS, 2 TO 4 12/02/19 12 40509-WHDA SKIN LESIONS, 2 TO 4 11/03/19 19 17967-TDQF SKIN LESIONS, 2 TO 4 08/04/19 19 95165-ENXF SKIN LESIONS, 2 TO 4 09/11/19 16 08364-FMUE SKIN LESIONS, 2 TO 4 10/25/19 11 17250-ZNCN SKIN LESIONS, 2 TO 4 09/09/19 15 75715-DTBM SKIN LESIONS, 2 TO 4 09/04/19 01834-VXCC SKIN LESIONS, 2 TO 4 03/02/19 01828-EVUC SKIN LESIONS, 2 TO 4 12/02/19 24 89319-HFEP SKIN LESIONS, 2 TO 4 10/09/19 18 03199-FBGT SKIN LESIONS, 2 TO 4 06/27/19 18 46902-XRTQ SKIN LESIONS, 2 TO 4 04/21/19 20 68676-OJLU SKIN LESIONS, 2 TO 4 07/22/19 20 10519-CPDS SKIN LESIONS, 2 TO 4 11/03/19 20 00141-HLYL SKIN LESIONS, 2 TO 4 02/23/19 21 09480-PWLM SKIN LESIONS, 2 TO 4 05/25/19 21 71912-WJMS SKIN LESIONS, 2 TO 4 11/28/19 21 61654-UPYY SKIN LESIONS, 2 TO 4 03/14/19 22 15389-DQNO SKIN LESIONS, 2 TO 4 03/08/19 16 66452-JTIT SKIN LESIONS, 2 TO 4 12/09/19 15 27316-YJCS SKIN LESIONS, 2 TO 4 04/04/19 15 58456-OYPY SKIN LESIONS, 2 TO 4 01/11/20 14 72575-FMEU SKIN LESIONS, 2 TO 4 12/11/19 16 06199-GMLE SKIN LESIONS, 2 TO 4 06/18/19 17 38911-UDHJ SKIN LESIONS, 2 TO 4 09/19/19 17 14110-ZISW SKIN LESIONS, 2 TO 4 06/12/19 16 85964-PZYT SKIN LESIONS, 2 TO 4 11/28/19 72986-YBFW SKIN LESIONS, 2 TO 4 03/26/19 13 60546-BDPU SKIN LESIONS, 2 TO 4 09/02/19 12 42834-TQJC SKIN LESIONS, 2 TO 4 06/03/19 12 75926-WRFB SKIN LESIONS, 2 TO 4 02/20/19 12 24277-CQLO SKIN LESIONS, 2 TO 4 05/04/19 14 05270-SWZU SKIN LESIONS, 2 TO 4 08/13/19 14 91693-UUCE SKIN LESIONS, 2 TO 4 01/28/20 13 60720-MEQF SKIN LESIONS, 2 TO 4 11/27/19 13 Next Appt Details Provider Name:Antolin Ac Hernandez , 12/21/2024 10:30:00 AM, [address] [place], [address], Insurance Providers Payer Name Payer Address Payer Phone Subscriber Number Group Number Insured Name Patient Relationship to Insured Coverage Start Date Coverage End Date [employer] [place] Medicare [employer]vantage One [facility] [address] [place] [address] [id number] Alex Arias Self - patient is the insured Medical (General) History Medical History History ICD Code mumps type II diabetes covid-19 Hypertension Surgical History Surgery Date(Month/Year) prostate surgery 06/24/2014 Hospitalization History Reason Date(Month/Year) C- pneumonia xrays of lungs same day
[2024-11-15 13:28] LABS: MANUAL DIFF FLAG NO
[2024-11-15 13:31] LABS: Hematocrit 33.5 % (42.0-52.0); Hemoglobin 11.2 g/dl (14.0-18.0); Imm Gran Abs Auto 0.03 X10*3/uL (0.00-0.03); Imm Gran Pct Auto 0.4 % (0.0-0.4); Lymphocytes Absolute Auto 1.9 X10*3/uL (1.2-4.9); Mean Corpuscular HGB Conc 33.4 g/dl (31.0-36.0); Mean Corpuscular Hemoglobin 29.2 pg (27.0-33.0); Mean Corpuscular Volume 87.5 fL (80.0-98.0); NRBC Abs Auto 0.000 X10*3/uL (0.0-0.012); NRBC Pct Auto 0.0 /100WBC (0.0-0.2); Platelet Count 148 X10*3/uL (160-400); Red Blood Count 3.83 X10*6/uL (4.60-5.80); White Blood Count 7.2 X10*3/uL (4.8-10.8)
[2024-11-15 13:58] LABS: Syphilis Screen Nonreactive (Nonreactive)
[2024-11-15 14:02] LABS: Alanine Aminotransferase 7 U/L (0-40); Albumin Level 4.0 g/dL (3.5-5.0); Alkaline Phosphatase 58 U/L (39-117); Anion Gap 9 (12-20); Aspartate Amino Transferase 20 U/L (5-37); Blood Urea Nitrogen 35 mg/dL (9-16); Calcium 9.2 mg/dL (8.4-10.2); Carbon Dioxide 26 mmol/L (22-29); Chloride 108 mmol/L (96-108); Estimated Glomerular Filt Rate 44; Potassium 5.1 mmol/L (3.3-5.1); Sodium 138 mmol/L (135-145); Total Protein 7.0 g/dL (6.5-8.0)
== END 2024-11-15 10:49 | disposition home or self-care (01) ==
LOC: HO.HMGCLDS 10:48
PROVIDERS: PCP Student in an Organized Health Care Education/Training Program; Visit Provider Student in an Organized Health Care Education/Training Program
DX: I10 Essential (primary) hypertension (principal); E11.9 Type 2 diabetes mellitus without complications; H40.9 Unspecified glaucoma; Z13.21 Encounter for screening for nutritional disorder
CPT/HCPCS: 36415; 80053; 82306; 83036; 84443; 85025; 86780

== ENCOUNTER 2025-01-12 10:51 | Outpatient (AMB) | payer MEDICARE, SELFPAY ==
--- NOTE | 2025-01-12 10:52 | A.OFFPC_ITS ---
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 E11.22 lisinopril 10 mg PO BID sitagliptin phosphate (Januvia) 50 mg PO DAILY tamsulosin mg PO timolol maleate 0.5% drps ophthalmic (eye) Tobacco use date assessed: 10/22/24 Fall risk assessment: No Falls in past year Last assessed Fall Risk: 01/12/25 Dental Screening Dental Screen Date: 01/12/25 Did you have a dental visit in the last 12 months?: No Did you have a dental problem in the last 6 months where you did not have access to dental care?: No Was dental information given to patient?: Patient has dentist HPI HPI Comments History of Present Illness Details History of Present Illness The patient is an 89 year old individual presenting for chronic condition management and vaccinations. The patient has a history of hypertension, with a usual blood pressure around 135 mmHg, but it was elevated to 165 mmHg during this visit. The patient reports a recent increase in salt intake during the holidays. The patient has a history of type 2 diabetes, for which the patient takes glipizide 10 mg and Januvia 50 mg every morning. The patient monitors blood glucose at home, with this morning's reading being 82 mg/dL. An HbA1c from November was 6.3%. The patient has had difficulty with the glucometer and requested a new machine. The patient has chronic kidney disease stage 3, which is attributed to diabetes, hypertension, and aging. Lab results from November showed a creatinine of 1.51 and creatinine clearance of 44, corresponding to stage 3B, while December labs indicated stage 4, showing variability. Additional medical history includes glaucoma, managed with timolol eye drops, and benign prostatic hyperplasia, managed with tamsulosin 0.4 mg. The patient reports chronically feeling cold, but thyroid function was normal at 2.16 a month ago. The patient has a history of three COVID-19 infections despite being vaccinated. Medical History: - Hypertension - Type 2 diabetes mellitus - Chronic kidney disease, stage 3 - Glaucoma - Benign prostatic hyperplasia - History of COVID-19 infection (3 times ) Medications: - Glipizide 10 mg every morning for diab etes - Januvia 50 mg every morning for diabet es - Lisinopril 10 mg twice a day for hyper tension - Timolol eye drops for glaucoma - Tamsulosin 0.4 mg for benign prostatic hyperplasia Diagnostic Results: - Labs (November): HbA1c was 6.3%. - Labs (November): Creatinine clearance w as 44 with a creatinine of 1.51, consistent with CKD Stage 3B. - Labs (December): Results were consiste nt with CKD Stage 4. - Labs (one month ago): Thyroid function was normal with a level of 2.16. Social History - Functional Status: The patient reports being active from 5 a.m. and recently shoveled snow from two driveways. - Nutritional Intake: The patient states a recent increase in salt intake over the holidays but denies eating processed food. Health Maintenance - Vaccinations: Administered influenza a nd pneumococcal vaccines. - Vaccinations: Recommended COVID-19 vac cination. - Healthy Lifestyle Discussions: Advised on reducing dietary salt and avoiding processed foods to manage blood pressure. - Healthy Lifestyle Discussions: Encoura ged to remain physically active. Patient was informed and verbally consented to the use of an ambient scribe for clinic note documentation during this visit. Vital signs reviewed. Comprehensive history, review of systems, and physical exam completed. Medications, allergies, and problem list reviewed and updated. Counseling provided on nutrition, regular exercise, sleep hygiene, and moderation of alcohol use. Discussed age-appropriate screenings (mammogram, colonoscopy, Pap, bone density) and immunizations (flu, COVID, shingles, Tdap). Screened for depression, fall risk, and home safety; no current concerns. Discussed stress management, dental and vision care, and importance of ongoing preventive follow-up. Routine labs ordered for metabolic and lipid screening. Patient educated on healthy lifestyle and agrees with the plan. [facility] Medical History (Updated 01/12/25 @ 11:44 by Sebastien Prado MD) CKD stage 3b, GFR 30-44 ml/min BPH (benign prostatic hyperplasia) Glaucoma Diabetes Hypertension Social History Housing: House e-Cigarette/Vaping Use: Never Used service: Yes Current occupational status: retired Questionnaire PHQ-9 Over the last 2 weeks, how often have you been bothered by any of the following problems? 1. Little interest or pleasure in doing things: not at all 2. Feeling down, depressed, or hopeless: not at all 3. Trouble falling or staying asleep, or sleeping too much: not at all 4. Feeling tired or having little energy: not at all 5. Poor appetite or overeating: not at all 6. Feeling bad about yourself - or that you are a failure or have let yourself or your family down: not at all 7. Trouble concentrating on things, such as reading the newspaper or watching television: not at all 8. Moving or speaking so slowly that other people could have noticed. Or the opposite - being so fidgety or restless that you have been moving around a lot more than usual: not at all 9. Thoughts that you would be better off or of hurting yourself in some way: not at all Total score: 0 Depression Screening Interpretation: Negative Depression Screening Done: Yes 86176 - PHQ-9 Billing: Yes Source: Developed by Drs. Javier Cifuentes, Cristobal Boston and colleagues, with an educational emilee from [employer]. Thrive Questionnaire Date Thrive assessed: 10/22/24 KEN-7 AMB Questionnaire KEN-7 Date KEN - 7 assessed: 10/22/24 Source: Developed by Drs. Javier Cifuentes, Cristobal Boston and colleagues, with an educational emilee from [employer]. Review of Systems Narrative Review of Systems - Constitutional: Reports always feeling cold. - Cardiovascular: Denies chest pain. - Respiratory: Denies shortness of breath. - Gastrointestinal: Denies nausea and vomiting. - Genitourinary: Reports normal urination and bowel movements. - Neurological: Denies headaches. - Eyes: Denies vision changes. - Integumentary/Musculoskeletal: Denies swelling. All systems reviewed & are unremarkable except as reviewed in HPI and above Physical exam (Primary Care) Vital Signs: Last Vital Signs Temp 97.3 F 01/12/25 11:01 Pulse 48 L 01/12/25 11:01 Resp 20 01/12/25 11:01 BP 164/58 H 01/12/25 11:01 Pulse Ox 96 01/12/25 11:01 Oxygen Delivery Method Room Air 01/12/25 11:01 BMI result Body Mass Index 29.8 Tobacco/Smoking Status: Tobacco use Status Tobacco use date assessed 10/22/24 01/12/25 10:55 e-Cigarette/Vaping Use Never Used 01/12/25 11:04 PHQ-9: PHQ-9 Score PHQ-9: Total score 0 01/12/25 11:40 Depression Screening Interpretation: Negative Thrive Assessment: Date of Thrive Assessment Date Thrive assessed 10/22/24 01/12/25 10:55 Narrative Physical Exam General: +Alert and oriented, Well nourished, No acute distress. Eye: Pupils are equal, round and reactive to light, Intact accommodation, Extraocular movements are intact, Normal conjunctiva, Vision unchanged. HENT: Normocephalic, Atraumatic, Tympanic membranes are clear, Normal hearing, Oral mucosa is moist, No pharyngeal erythema, Ear canals patent. Respiratory: Lungs CTA bilaterally, No wheeze, Respirations are non-labored. Cardiovascular: Regular rate, Regular rhythm, S1 auscultated, S2 auscultated, No murmur, Good pulses equal in all extremities, Normal peripheral perfusion, No edema. Gastrointestinal: Soft, Non-tender, Non-distended, Normal bowel sounds, No organomegaly. Musculoskeletal: Normal range of motion, Normal strength, No tenderness, No swelling, No deformity, Normal gait. Integumentary: Warm, Dry, [place], Intact. Neurologic: Alert, Oriented, Normal sensory, Normal motor function, No focal defects, Cranial Nerves II-XII are grossly intact, Normal deep tendon reflexes. Psychiatric: Cooperative, Appropriate mood & affect, Normal judgment. Coding Level of Care Code Est Pt Level 4 (21311) Complex visit Add On G2211 Diagnoses Type 2 diabetes mellitus without complication, without long-term current use of insulin E11.9 Diabetes mellitus complication status: without complication Diabetes mellitus keno terminal operator insulin use: without long-term use Diabetes mellitus type: type 2 Hypertension, unspecified type I10 Hypertension type: unspecified CKD stage 3b, GFR 30-44 ml/min N18.32 Benign prostatic hyperplasia, unspecified whether lower urinary tract symptoms present N40.0 Lower urinary tract symptom presence: unspecified whether lower urinary tract symptoms present Glaucoma, unspecified glaucoma type, unspecified laterality H40.9 Glaucoma type: unspecified Laterality: unspecified laterality Additional Codes PHQ-9 - 20898 - PHQ-9 Billing: Yes ([id number]) Assessment & Plan Assessment & Plan (1) Diabetes: Comment: - The condition is well-controlled, with a recent HbA1c of 6.3%. - The patient will continue the current regimen of glipizide and Januvia. - A new glucometer and supplies will be ordered as requested due to difficulty with the current device. Code(s): E11.9 - Type 2 diabetes mellitus without complications Category: Medical Qualifiers: Diabetes mellitus complication status: without complication Diabetes mellitus keno terminal operator insulin use: without keno terminal operator use Diabetes mellitus type: type 2 Qualified Code(s): E11.9 - Type 2 diabetes mellitus without comp lications (2) Hypertension: Comment: - The patient presents with an elevated blood pressure of 160/70 mmHg, which is likely secondary to increased salt intake over the holidays. - The plan is for the patient to monitor blood pressure at home three times a week, reduce dietary salt, and avoid processed foods. - If blood pressure remains high at the one-month follow-up, an increase in lisinopril will be considered. Code(s): I10 - Essential (primary) hypertension Category: Medical Qualifiers: Hypertension type: unspecified Qualified Code(s): I10 - Essential (primary) hypertension (3) CKD stage 3b, GFR 30-44 ml/min: Comment: - The condition is stable. - The importance of maintaining blood pressure and glucose control to prevent progression was emphasized. - The patient will continue taking lisinopril for its renal protective effects. Code(s): N18.32 - Chronic kidney disease, stage 3b Category: Medical (4) BPH (benign prostatic hyperplasia): Comment: - The patient will continue taking tamsulosin 0.4 mg as prescribed. Code(s): N40.0 - Benign prostatic hyperplasia without lower urinary tract symptoms Category: Medical Qualifiers: Lower urinary tract symptom presence: unspecified whether lower urinary tract symptoms present Qualified Code(s): N40.0 - Benign prostatic hyperplasia without lower urinary tract symptoms (5) Glaucoma: Comment: - The patient will continue using timolol eye drops as prescribed. Code(s): H40.9 - Unspecified glaucoma Category: Medical Qualifiers: Glaucoma type: unspecified Laterality: unspecified laterality Qualified Code(s): H40.9 - Unspecified glaucoma Plan: Health Maintenance: - Vaccinations: Administered influenza and pneumococcal vaccines. - Vaccinations: Recommended COVID-19 vaccination. - Healthy Lifestyle Discussions: Advised on reducing dietary salt and avoiding processed foods to manage blood pressure. - Healthy Lifestyle Discussions: Encouraged to remain physically active. Patient was informed and verbally consented to the use of an ambient scribe for clinic note documentation during this visit. Plan I discussed the patient's elevated blood pressure of 160/70 mmHg, explaining that it is likely attributable to increased salt intake over the holidays. I advised the patient to monitor pressures three times a week at home and to reduce dietary salt. I informed the patient that if blood pressure remains high, we will increase medication at the one-month follow-up. We reviewed that the patient's diabetes is well-controlled with an HbA1c of 6.3%. I agreed to order a new glucometer and supplies as requested. I also explained that chronic kidney disease stage 3 is managed by controlling blood pressure and blood sugar. The patient consented to and received the influenza and pneumococcal vaccines today. I recommended the COVID-19 vaccine as well. A follow-up appointment was scheduled for one month. Medications: New [lancets] As directed 100 ea 8RF E11.9 - Type 2 diabetes mellitus without complications [Glucometer] As directed 1 ea 0RF E11.9 - Type 2 diabetes mellitus without complications [Pen [place]] As directed 100 ea 0RF E11.9 - Type 2 diabetes mellitus without complications [Test Strips] As directed 100 ea 8RF E11.9 - Type 2 diabetes mellitus without complications Patient Instructions: - Please check your blood pressure three times a week and write down the numbers to bring to your next visit. - Reduce the amount of salt in your diet and avoid processed foods like fast food. - Continue taking all your current medications as prescribed. - We will order a new blood sugar meter and testing supplies for you. - Your arms may feel sore from the flu and pneumonia shots you received today. - Please schedule a follow-up appointment to see us in one month.
[2025-01-12 11:01] VITALS: BP 164/58; PULSE 48; RESP 20; TEMP 36.3; O2SAT 96; BMI 29.8
--- OUTSIDE RECORDS SUMMARY | 2025-01-12 12:43 | XMS_ITS | Patient Health Record ---
Author Organization [facility] Address [address] [place] [address] Care Team Providers Care Audio Recording Engineer Name Role Phone Jona Thomson Jr Reason For Referral No Information Plan Of Treatment No Information
--- OUTSIDE RECORDS SUMMARY | 2025-01-12 12:43 | XMS_ITS | Patient Health Record ---
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 Name Role Phone Frank Santa Primary Care Provider Antolin Hernandez Unavailable [phone] Allergies No Known Allergies Results Component Value Reference Range Notes HEMOGLOBIN A1C (GLYCOHEMOGLO BIN) Reviewed date:09/03/2024 12:03:16 PM Interpretation: Performing Lab: Notes/Report: HEMOGLOBIN A1C % (HH) 6.5 Reason For Referral No Information Medications Medication SIG (Take, Route, Frequency, Duration) Notes Start Date End Date Status Tamsulosin HCl Activ e glipiZIDE 5 MG 1 tablet Orally Once a day Active Lisinopril Active TOLAZamide Active Metformin & Diet Manage Prod Not-Taking Doxazosin Mesylate A ctive Eye Drops Active Extra Depth Orthopedic Shoes (1 Pair) with Customized Heat Molded Multidensity Innersoles (3 Pair) as directed Dx: NIDDM/Polyneuropathy (E11.42), Hammertoe Foot Deformity (M20.41,M20.42), Preulcerative Skin Lesion(s) (L85.1 06/01/2024 Active januvia Active Immunizations Vaccine Route Administration Date Status [...] Problem Acquired hammer toe of right foot ([id number] 5) Other hammer toe(s) (acquired), right foot (M20.41) Active confirmed Response to treatment, Improvement Problem Acquired hammer toe of left foot (968192144979675 3) Other hammer toe(s) (acquired), left foot (M20.42) Active confirmed Response to treatment, Improvement Problem Polyneuropathy due to type 2 diabetes mellitus (065581008) Type 2 diabetes mellitus with diabetic polyneuropathy (E11.42) Active confirmed Vital Signs Blood pressure diastolic 70 mm Hg 12/21/2024 Height 5 ft 10.5 in in 12/21/2024 Blood pressure systolic 123 mm Hg 12/21/2024 Weight 230 lbs 12/21/2024 BMI 32.53 kg/m2 12/21/2024 Procedures Procedure Date Ordered Date Performed Result Body Sit e 33372-XVFWHSB NAIL, 6 OR MORE 03/02/2024 N/A 68628-FHZC SKIN LESIONS, 2 TO 4 03/02/2024 N/A 57173-QTVCADM NAIL, 6 OR MORE 06/01/2024 N/A 87861-ANFY SKIN LESIONS, 2 TO 4 06/01/2024 N/A 35673-QKXXESP NAIL, 6 OR MORE 09/03/2024 N/A 11078-ZPXW SKIN LESIONS, 2 TO 4 09/03/2024 N/A 77704-UTZICIN NAIL, 6 OR MORE 12/21/2024 N/A 82825-FQGL SKIN LESIONS, 2 TO 4 12/21/2024 N/A Encounters Encounter Location Date Provider Diagnosis [facility] [address] [address] 03/02/2024 Antolin Hernandez Type 2 diabetes mellitus with diabetic polyneuropathy E11.42 and Tinea unguium B35.1 [facility] [address] [place] [address] 06/01/2024 Antolin Hernandez Type 2 diabetes mellitus with diabetic polyneuropathy E11.42 ; Tinea unguium B35.1 ; Other hammer toe(s) (acquired), right foot M20.41 and Other hammer toe(s) (acquired), left foot M20.[address] [address] 09/03/2024 Antolindavid Hernandez Type 2 diabetes mellitus with diabetic polyneuropathy E11.42 and Tinea unguium B35.[address] [address] 12/21/2024 Antolin Hernandez Type 2 diabetes mellitus with diabetic polyneuropathy E11.42 ; Tinea unguium B35.1 ; Other hammer toe(s) (acquired), right foot M20.41 and Other hammer toe(s) (acquired), left foot M20.42 Assessments Encounter Date Diagnosis (ICD Code) Assessment Notes Treatment Notes Treatment Clinical Notes Section Notes 03/02/2024 Type 2 diabetes mellitus with diabetic polyneuropathy (ICD-10 - E11.42) 03/02/2024 Tinea unguium (ICD-10 - B35.1) 06/01/2024 Type 2 diabetes mellitus with diabetic polyneuropathy (ICD-10 - E11.42) 06/01/2024 Tinea unguium (ICD-10 - B35.1) 09/03/2024 Type 2 diabetes mellitus with diabetic polyneuropathy (ICD-10 - E11.42) 09/03/2024 Tinea unguium (ICD-10 - B35.1) 12/21/2024 Type 2 diabetes mellitus with diabetic polyneuropathy (ICD-10 - E11.42) 12/21/2024 Tinea unguium (ICD-10 - B35.1) 06/01/2024 Other hammer toe(s) (acquired), right foot (ICD-10 - M20.41) Patient Educated with: DIABETIC FOOT CARE INSTRUCTIONS. pdf (DIABETIC FOOT CARE INSTRUCTIONS. pdf) 12/21/2024 Other hammer toe(s) (acquired), right foot (ICD-10 - M20.41) Response to treatment, Improvement 12/21/2024 Other hammer toe(s) (acquired), left foot (ICD-10 - M20.42) Response to treatment, Improvement 06/01/2024 Other hammer toe(s) (acquired), left foot (ICD-10 - M20.42) Plan Of Treatment Pending Test Test Name Order Date X ray : Foot, left 3V 11/01/2016 X ray : Foot, right 3V 11/26/2012 09448-REAJPAF NAIL, 6 OR MORE 06/22/2012 31704-YYVGMIG NAIL, 6 OR MORE 09/23/2012 94052-KEFIWQX NAIL, 6 OR MORE 12/02/2011 07490-OGBXFFS NAIL, 6 OR MORE 03/26/2012 94953-ERKDNQD NAIL, 6 OR MORE 10/24/2010 38925-ZDUKVJV NAIL, 6 OR MORE 02/20/2011 09179-LMIFPGY NAIL, 6 OR MORE 06/03/2011 50596-QHMSDDO NAIL, 6 OR MORE 09/02/2011 46112-JMXTOYL NAIL, 6 OR MORE 01/27/2013 85158-DHWHLII NAIL, 6 OR MORE 05/03/2013 53186-EBNQKVG NAIL, 6 OR MORE 10/25/2013 84306-NFAXDID NAIL, 6 OR MORE 01/10/2014 43201-BKMYUTT NAIL, 6 OR MORE 04/04/2014 10889-PBHHJMX NAIL, 6 OR MORE 09/08/2014 99490-FELDQNM NAIL, 6 OR MORE 12/08/2014 28734-RKUBNRD NAIL, 6 OR MORE 03/08/2015 16068-URWFELP NAIL, 6 OR MORE 11/26/2012 25021-PBWSEFS NAIL, 6 OR MORE 09/18/2016 24990-JEOXPDY NAIL, 6 OR MORE 11/27/2016 59506-PZNZGDG NAIL, 6 OR MORE 06/26/2017 32970-ZYOBWLG NAIL, 6 OR MORE 06/12/2015 62661-ESZPALF NAIL, 6 OR MORE 09/11/2015 07512-KUGFKNO NAIL, 6 OR MORE 12/11/2015 57245-BDHAYJE NAIL, 6 OR MORE 03/06/2016 27061-BGKOIEG NAIL, 6 OR MORE 01/26/2018 94854-EFOKUWL NAIL, 6 OR MORE 10/08/2017 63641-QPRGACE NAIL, 6 OR MORE 12/02/2023 94769-CJSLNNP NAIL, 6 OR MORE 03/02/2024 54124-RDRDWWG NAIL, 6 OR MORE 06/01/2024 84019-EHZDSRZ NAIL, 6 OR MORE 09/03/2024 14846-JIGZBAM NAIL, 6 OR MORE 12/21/2024 06061-UEOB SKIN LESIONS, 2 TO 4 12/22/19 37692-XIYX SKIN LESIONS, 2 TO 4 09/04/19 90185-YNPM SKIN LESIONS, 2 TO 4 06/02/19 97297-ROHJ SKIN LESIONS, 2 TO 4 03/02/19 62726-QHBQ SKIN LESIONS, 2 TO 4 12/02/19 60037-QWQF SKIN LESIONS, 2 TO 4 01/27/20 32987-JGZV SKIN LESIONS, 2 TO 4 04/28/19 19 91228-TUNK SKIN LESIONS, 2 TO 4 08/04/19 19 52774-DLJO SKIN LESIONS, 2 TO 4 11/03/19 01272-EQNU SKIN LESIONS, 2 TO 4 04/21/19 96112-JALZ SKIN LESIONS, 2 TO 4 07/22/19 59154-TNMR SKIN LESIONS, 2 TO 4 11/03/19 35025-FIAT SKIN LESIONS, 2 TO 4 02/23/19 49061-XSJT SKIN LESIONS, 2 TO 4 05/25/19 50539-JTVQ SKIN LESIONS, 2 TO 4 08/25/19 21 68823-OXHU SKIN LESIONS, 2 TO 4 11/28/19 21 93166-RLTG SKIN LESIONS, 2 TO 4 03/14/19 13677-GXJY SKIN LESIONS, 2 TO 4 06/18/19 17 80181-IBWV SKIN LESIONS, 2 TO 4 09/19/19 17 67422-GJOG SKIN LESIONS, 2 TO 4 12/11/19 16 36996-XNSL SKIN LESIONS, 2 TO 4 09/11/19 16 87285-MQFK SKIN LESIONS, 2 TO 4 06/12/19 16 60172-ZLPV SKIN LESIONS, 2 TO 4 10/09/19 18 85561-DALE SKIN LESIONS, 2 TO 4 06/27/19 18 60891-KMMC SKIN LESIONS, 2 TO 4 11/28/19 17 51458-MHWG SKIN LESIONS, 2 TO 4 03/08/19 16 79263-IYGT SKIN LESIONS, 2 TO 4 12/09/19 15 87918-JUDN SKIN LESIONS, 2 TO 4 09/09/19 15 66803-NDYH SKIN LESIONS, 2 TO 4 04/04/19 15 18241-DDXG SKIN LESIONS, 2 TO 4 01/11/20 14 21105-MJPC SKIN LESIONS, 2 TO 4 10/26/19 14 29532-XUJY SKIN LESIONS, 2 TO 4 05/04/19 14 04304-OYFP SKIN LESIONS, 2 TO 4 08/13/19 14 08598-VDFF SKIN LESIONS, 2 TO 4 01/28/20 13 60335-ZCAH SKIN LESIONS, 2 TO 4 09/02/19 12 84078-FFAR SKIN LESIONS, 2 TO 4 06/03/19 12 68965-NMUQ SKIN LESIONS, 2 TO 4 02/20/19 12 19286-BVRA SKIN LESIONS, 2 TO 4 10/25/19 11 96660-ANDL SKIN LESIONS, 2 TO 4 03/26/19 13 91644-TYOC SKIN LESIONS, 2 TO 4 12/02/19 12 90052-HZTZ SKIN LESIONS, 2 TO 4 09/24/19 13 39233-HZPC SKIN LESIONS, 2 TO 4 11/27/19 13 Next Appt Details Provider Name:Antolin Hernandez , 04/05/2025 10:45:00 AM, [address] [facility], [place], [address], Insurance Providers Payer Name Payer Address Payer Phone Subscriber Number Group Number Insured Name Patient Relationship to Insured Coverage Start Date Coverage End Date [employer]age [address] [place] [address] [id number] Alex Arias Self - patient is the insured Medical (General) History Medical History History ICD Code mumps type II diabetes covid-19 Hypertension Surgical History Surgery Date(Month/Year) prostate surgery 06/24/2014 Hospitalization History Reason Date(Month/Year) C- pneumonia xrays of lungs same day
== END 2025-01-12 11:30 | disposition home or self-care (01) ==
LOC: HO.HMCHD 10:51
PROVIDERS: PCP Student in an Organized Health Care Education/Training Program; Visit Provider Student in an Organized Health Care Education/Training Program
DX: E11.9 Type 2 diabetes mellitus without complications (principal); I10 Essential (primary) hypertension; N18.32 Chronic kidney disease, stage 3b; N40.0 Benign prostatic hyperplasia without lower urinary tract symptoms; H40.9 Unspecified glaucoma; Z23 Encounter for immunization

== ENCOUNTER → 2025-01-12 10:51 | Outpatient (BNVA) | payer MEDICARE, SELFPAY | PROVIDERS: PCP Student in an Organized Health Care Education/Training Program; Visit Provider Student in an Organized Health Care Education/Training Program | DX: I12.9 Hypertensive chronic kidney disease with stage 1 through stage 4 chronic kidney disease, or unspecified chronic kidney disease (principal); E11.22 Type 2 diabetes mellitus with diabetic chronic kidney disease; N18.32 Chronic kidney disease, stage 3b; N40.0 Benign prostatic hyperplasia without lower urinary tract symptoms; Z86.16 Personal history of COVID-19; Z23 Encounter for immunization; Z13.30 Encounter for screening examination for mental health and behavioral disorders, unspecified | CPT/HCPCS: 90471; 90662; 90677; 96127; 99212 ==